=== PATIENT | female | born 1975 | race Caucasian/White ===

== ENCOUNTER 2016-12-26 18:21 | Emergency (ER) | payer OTHER, SELFPAY ==
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
[2016-12-26] MEDS ORDERED: Zofran 4 MG/2 ML VIAL IV ONE (18:44)
[2016-12-26] MEDS ORDERED: Sodium Chloride 0.9% 1000 ML 1,000 ML IV STA (18:44)
[2016-12-26] MEDS ORDERED: Zofran 4 MG/2 ML VIAL ONE (18:48)
[2016-12-26] MEDS ORDERED: Sodium Chloride 0.9% 1000 ML 1,000 ML ONE (18:48)
[2016-12-26 18:50] LABS: BASOPHIL % 0.3 % (0.0-0.4); Eosinophil % 2.5 % (0.00-5.0); Lymphocytes % 32.1 % (24.0-44.0); Mean Cell Volume 81.1 fl (78-100); Mean Corpuscular Hemoglobin 27.1 pg (26-32); Mean Platelet Volume 9.2 fl (6-9.5); Monocytes % 6.1 % (0.0-12.0); Platelet Count 263 K/mm3 (150-450); Red Blood Count 5.02 M/mm3 (4.1-5.4); Red Cell Distribution Width 15.8 % (11.5-14.0); White Blood Count 8.7 K/mm3 (4.0-10.5)
[2016-12-26 19:08] LABS: ALBUMIN 3.8 g/dL (3.4-5.0); ANION GAP 17.6 MEQ/L (5-15); BILIRUBIN,TOTAL 0.7 mg/dL (0.2-1.0); Carbon Dioxide 21.6 mEq/L (21-32); Potassium 3.6 mEq/L (3.5-5.1); Total Protein 7.9 gm/dL (6.4-8.2)
[2016-12-26 19:13] VITALS: PULSE 80
[2016-12-26] MEDS ORDERED: SUBLIMAZE 100 MCG/2 ML IV ONE (19:18)
[2016-12-26] MEDS ORDERED: Vistaril 50 MG/ML IM ONE ×2 (19:19→19:21)
[2016-12-26] MEDS ORDERED: SUBLIMAZE 100 MCG/2 ML ONE (19:22)
[2016-12-26 19:38] LABS: Collection Type CLEAN CATCH; Ph 5.5 (5-6)
[2016-12-26 19:39] LABS: ADD URINE CULTURE? NO (NO); COMPLETE URINE MICROSCOPIC? NO
[2016-12-26 19:48] VITALS: O2SAT 96
[2016-12-26] MEDS ORDERED: ZOFRAN ODT 4 MG ONE (20:41)
[2016-12-26] MEDS ORDERED: ZOFRAN ODT 4 MG PO ONE (20:46)
[2016-12-26 21:36] VITALS: BP 116/78
--- NOTE | 2016-12-27 09:02 | XRAY ---
Indication: Lower abdominal pain, nausea, vomiting, and dysuria. Multiple contiguous axial images obtained through the abdomen and pelvis without contrast as ordered. Comparison: CT renal stone study March 27, 2013. Lung bases are clear. Heart is not enlarged. Noncontrasted stomach and bowel loops appear nonobstructed. Scattered dense material in the small bowel loops presumed ingested medication. Normal appendix. No free fluid/air. Again previous hysterectomy. Remaining liver, gallbladder, pancreas, spleen, adrenal glands, kidneys, ureters, and bladder appear unremarkable for noncontrast exam. Minimal aortoiliac calcifications without AAA. Osseous structures intact again with flowing osteophytes of the visualized thoracic spine. No new finding for old L1 superior endplate fracture with approximately 50% height loss. Impression: 1. New finding for remote L1 endplate fracture. 2. No new/acute intra-abdominal/pelvic abnormalities on this noncontrast exam. CT DI 23.22
== END 2016-12-26 21:00 | disposition home or self-care (01) ==
LOC: ED 18:21
DX: R10.31 Right lower quadrant pain (principal); R10.11 Right upper quadrant pain; R11.10 Vomiting, unspecified; R19.7 Diarrhea, unspecified
CPT/HCPCS: 36000; 36415; 74176; 80053; 81002; 83690; 85025; 96360; 96372; 96374; 96375; 99284; J2405; J3010; J3410; Q0162

== ENCOUNTER 2017-05-22 16:34 | Inpatient (IN) | payer OTHER, SELFPAY ==
[2017-05-22] MEDS ORDERED: TYLENOL 325 MG PO ONE (17:04)
--- NOTE | 2017-05-22 17:04 | ERPHSYRPT ---
- History of Present Illness Time Seen by Provider: 05/22/17 16:58 Historian: patient Exam Limitations: no limitations Patient Subjective Stated Complaint: PT STATES 20 MIN [employer] SHE BEGAN HAVING RIGHT SIDED CHEST PAIN THAT RADAITES DOWN RIGHT ARM. STATES SHE HAS HAD A NON PRODUCTIVE COUGH. Triage Nursing Assessment: PT PINK, WARM, DRY. WHEEZES NOTED IN RIGHT LOWER LOBE. PT AFEBRILE. Physician History: The patient is a 41-year-old female with family complaining that 30 minutes ago she had a sharp stabbing pain in the mid to right side of her chest radiation down her right arm lasting about 2 seconds. After 15 seconds, the chest pain would return for 2 seconds and then resolved. She became nauseated. She is slightly short of breath, although she has been short of breath for several days. She has had similar episodes of right-sided chest pain for the past 2 months, but they have lasted only one or 2 episodes. She's not had these looked into. She also developed a sharp headache today. Her past medical history is significant for COPD, asthma, and hypertension. Timing/Duration: today, hour(s) (1/2) Activities at Onset: rest Quality: sharpness, stabbing Location: central (right side) Chest Pain Radiation: arm (right) Severity of Pain-Max: moderate Severity of Pain-Current: none Modifying Factors: Improves With: nothing Associated Symptoms: nausea, shortness of breath Prior Chest Pain/Cardiac Workup: non-cardiac Nitro Today/Relief: no nitro taken today Aspirin Treatment Today: no aspirin today Allergies/Adverse Reactions: clarithromycin [From Biaxin] Allergy (Mild, Verified 05/22/17 16:44) Nausea AND DIARRHEA ketorolac tromethamine [From Toradol] Allergy (Mild, Verified 05/22/17 16:44) VOMITED tramadol Allergy (Mild, Verified 05/22/17 16:44) NAUSEA prednisone Adverse Reaction (Severe, Verified 05/22/17 16:44) Rash ITCHING midazolam HCl [From Versed] Adverse Reaction (Intermediate, Verified 05/22/17 16 :44) Nausea VOMITING Home Medications: Estradiol 2 mg PO HS 10/28/14 [History] Lisinopril 40 mg PO HS 10/28/14 [History] Pantoprazole 20 mg [Protonix 20MG Tablet] 20 mg PO HS 08/07/15 [History] Albuterol 8 gm Mdi Hfa [Ventolin Hfa MDI] 8 gm IH .PRN 12/01/15 [History] Buspirone HCl 5 mg [Buspar 5 mg] 15 mg PO DAILY 06/06/16 [History] Fluticasone/Salmeterol 115/21* [Advair Hfa 115/21 Mcg Inhaler] 2 puff IH BIDRT 06/06/16 [History] Tizanidine HCl 8 mg PO HS 05/22/17 [History] Trazodone HCl 150 mg PO HS 05/22/17 [History] Hx Tetanus, Diphtheria Vaccination/Date Given: Yes (UP TO DATE) Hx Influenza Vaccination/Date Given: No Hx Pneumococcal Vaccination/Date Given: No Immunizations Up to Date: Yes - Review of Systems Constitutional: No Fever, No Chills Eyes: No Symptoms Ears, Nose, & Throat: No Symptoms Respiratory: Dyspnea, No Cough Cardiac: Chest Pain Abdominal/Gastrointestinal: No Abdominal Pain, No Nausea, No Vomiting, No Diarrhea Genitourinary Symptoms: No Dysuria Musculoskeletal: No Back Pain, No Neck Pain Skin: No Rash Neurological: No Dizziness, No Focal Weakness, No Sensory Changes Psychological: No Symptoms Endocrine: No Symptoms Hematologic/Lymphatic: No Symptoms Immunological/Allergic: No Symptoms All Other Systems: Reviewed and Negative - Past Medical History Pertinent Past Medical History: Yes Neurological History: Migraines ENT History: No Pertinent History Cardiac History: Hypertension Respiratory History: Asthma, COPD, Emphysema Endocrine Medical History: No Pertinent History Musculoskeletal History: Osteoarthritis GI Medical History: Colitis, Hemorrhoids History: Other Psycho-Social History: Anxiety, Depression, Panic Disorder Female Reproductive Disorders: Abnormal Uterine Bleeding Other Medical History: wears O2 at night, DJD of the L-spine. Fracture of back at T12 and L 2. Pt see pain doctor, Dr. Swartz. SAD, RTC repair, Bicep tenodesis in 3 separate surgeries of R shoulder - Past Surgical History Past Surgical History: Yes Neuro Surgical History: No Pertinent History Cardiac: No Pertinent History Respiratory: No Pertinent History Gastrointestinal: No Pertinent History Genitourinary: No Pertinent History Musculoskeletal: Orthopedic Surgery Female Surgical History: Section, Hysterectomy Other Surgical History: rt shoulder TIMES 2, AND CARPLETUNNEL BRITTANY - Social History Smoking Status: Current every day smoker How long have you smoked: 24 Exposure to second hand smoke: Yes Drug Use: none Patient Lives Alone: No Significant Family History: no pertinent family hx - Female History Hx Last Menstrual Period: HYSTER Hx Now: No - Nursing Vital Signs Nursing Vital Signs: Initial Vital Signs Temperature 99.0 F 05/22/17 16:36 Pulse Rate 95 H 05/22/17 16:36 Respiratory Rate 20 05/22/17 16:36 Blood Pressure 172/99 05/22/17 16:36 O2 Sat by Pulse Oximetry 99 05/22/17 16:36 Pain Scale Pain Intensity 5 - Physical Exam General Appearance: no apparent distress, alert Eye Exam: PERRL/EOMI, eyes nml inspection Ears, Nose, Throat Exam: normal ENT inspection, moist mucous membranes Neck Exam: normal inspection, non-tender, supple, full range of motion Respiratory Exam: diminished breath sounds, wheezing, No chest tenderness Cardiovascular Exam: regular rate/rhythm, normal heart sounds Gastrointestinal/Abdomen Exam: soft, No tenderness, No mass Pelvic Exam: not done Rectal Exam: not done Back Exam: normal inspection, No CVA tenderness, No vertebral tenderness Extremity Exam: normal inspection, normal range of motion Neurologic Exam: alert, oriented x 3, cooperative, normal mood/affect, sensation nml, No motor deficits Skin Exam: normal color, warm, dry SpO2 Interpretation: normal SpO2: 99 Oxygen Delivery: Room Air - Course EKG Interpreted by Me: RATE, Sinus Rhythm, NORMAL AXIS, NORMAL INTERVALS, NORMAL QRS, NORMAL ST-T - Radiology Exams Chest X-ray Interpretation: Interpreted by me, Negative Ordered Tests: Active Orders 24 hr Category Date Time Status Fur Tailor STAT Care 05/22/17 18:14 Active EKG-ER Only STAT Care 05/22/17 16:48 Active IV Insertion STAT Care 05/22/17 16:49 Active CHEST 2 VIEWS (PA AND LAT) Stat Exams 05/22/17 17:05 Taken CBC W DIFF Stat Lab 05/22/17 17:00 Completed CMP Stat Lab 05/22/17 17:00 Completed TROPONIN Q3H Lab 05/22/17 17:39 Completed TROPONIN Q3H Lab 05/22/17 20:15 Ordered TROPONIN Q3H Lab 05/22/17 23:15 Ordered TROPONIN Q3H Lab 05/23/17 02:15 Ordered TROPONIN Q3H Lab 05/23/17 05:15 Ordered Respiratory Nebulizer STAT RT 05/22/17 17:06 Completed Medication Summary Discontinued Medications Generic Name Dose Route Start Last Admin Trade Name Yolis STRATTON Reason Stop Dose Admin Acetaminophen 975 mg 05/22/17 17:04 05/22/17 17:26 Tylenol 325 Mg PO 05/22/17 17:05 975 mg STAT ONE Administration Acetaminophen Confirm 05/22/17 17:15 Tylenol 325 Mg Administered 05/22/17 17:16 Dose 975 mg .ROUTE .STK-MED ONE Albuterol/Ipratropium 3 ml 05/22/17 17:06 05/22/17 17:33 Duoneb 0.5-3 Mg/3 Ml Neb IH 05/22/17 17:07 3 ml STAT ONE Administration Albuterol/Ipratropium Confirm 05/22/17 17:32 Duoneb 0.5-3 Mg/3 Ml Neb Administered 05/22/17 17:33 Dose 3 ml IH .STK-MED ONE Ibuprofen 600 mg 05/22/17 17:06 05/22/17 17:25 Motrin 600 Mg PO 05/22/17 17:07 600 mg STAT ONE Administration Ibuprofen Confirm 05/22/17 17:14 Motrin 600 Mg Administered 05/22/17 17:15 Dose 600 mg .ROUTE .STK-MED ONE Methylprednisolone Sodium Succinate 125 mg 05/22/17 17:06 05/22/17 17:24 Solu-Medrol 125 Mg IV 05/22/17 17:07 125 mg STAT ONE Administration Methylprednisolone Sodium Succinate Confirm 05/22/17 17:15 Solu-Medrol 125 Mg Administered 05/22/17 17:16 Dose 125 mg .ROUTE .STK-MED ONE Ondansetron HCl 4 mg 05/22/17 17:10 05/22/17 17:24 Zofran 4 Mg/2 Ml Vial IV 05/22/17 17:11 4 mg STAT ONE Administration Ondansetron HCl Confirm 05/22/17 17:14 Zofran 4 Mg/2 Ml Vial Administered 05/22/17 17:15 Dose 4 mg .ROUTE .STK-MED ONE Lab/Rad Data: Laboratory Result Diagrams 05/22/17 17:00 05/22/17 17:00 Laboratory Results 05/22/17 05/22/17 05/22/17 Range/Units 17:39 17:00 17:00 WBC 8.0 (4.0-10.5) K/mm3 RBC 4.91 (4.1-5.4) M/mm3 Hgb 13.2 (12.0-16.0) gm/dl Hct 40.6 (35-47) % MCV 82.7 (78-100) fl MCH 26.9 (26-32) pg MCHC 32.5 (32-36) g/dl RDW 15.1 H (11.5-14.0) % Plt Count 276 (150-450) K/mm3 MPV 9.1 (6-9.5) fl Gran % 58.2 (36.0-66.0) % Lymphocytes % 32.5 (24.0-44.0) % Monocytes % 6.0 (0.0-12.0) % Eosinophils % 3.0 (0.00-5.0) % Basophils % 0.3 (0.0-0.4) % Basophils # 0.02 (0-0.4) Sodium 140 (136-145) mEq/L Potassium 3.8 (3.5-5.1) mEq/L Chloride 103 (98-107) mEq/L Carbon Dioxide 25.5 (21-32) mEq/L Anion Gap 15.4 H (5-15) MEQ/L BUN 13 (9-20) mg/dL Creatinine 1.01 (0.55-1.30) mg/dl Estimated GFR > 60 ML/MIN Glucose 91 (70-110) MG/DL Calcium 9.4 (8.5-10.1) mg/dL Total Bilirubin 0.30 (0.2-1.0) mg/dL AST 13 L (15-37) U/L ALT 17 (12-78) U/L Alkaline Phosphatase 69 (46-116) U/L Troponin I < 0.017 (0.000-0.056) ng/ml Serum Total Protein 7.7 (6.4-8.2) gm/dL Albumin 3.9 (3.4-5.0) g/dL - Progress Progress: improved Progress Note: 05/22/17 18:48 After tylenol and ibuprofen and duoneb, pt is feeling better but states chest pain is now chest pressure at a 5 of 10. Blood Culture(s) Obtained: No Antibiotics given: No Discussed with : Eduard Will see patient in: hospital (observation) Counseled pt/family regarding: lab results, diagnosis, rad results - Departure Time of Disposition: 19:00 Departure Disposition: Home Clinical Impression: Chest pain Condition: Stable Critical Care Time: No Referrals: TEREZA VILLATORO [Primary Care Provider] -
[2017-05-22] MEDS ORDERED: DUONEB 0.5-3 MG/3 ml Neb IH ONE ×2 (17:06→17:32)
[2017-05-22] MEDS ORDERED: MOTRIN 600 MG PO ONE (17:06)
[2017-05-22] MEDS ORDERED: solu-MEDROL 125 MG IV ONE (17:06)
[2017-05-22] MEDS ORDERED: Zofran 4 MG/2 ML VIAL IV ONE (17:10)
[2017-05-22 17:14] LABS: BASOPHIL % 0.3 % (0.0-0.4); Granulocytes % 58.2 % (36.0-66.0); Lymphocytes % 32.5 % (24.0-44.0); Mean Cell Volume 82.7 fl (78-100); Mean Corpuscular Hemoglobin 26.9 pg (26-32); Mean Platelet Volume 9.1 fl (6-9.5); Platelet Count 276 K/mm3 (150-450); Red Blood Count 4.91 M/mm3 (4.1-5.4); Red Cell Distribution Width 15.1 % (11.5-14.0)
[2017-05-22] MEDS ORDERED: Zofran 4 MG/2 ML VIAL ONE (17:14)
[2017-05-22] MEDS ORDERED: MOTRIN 600 MG ONE (17:14)
[2017-05-22] MEDS ORDERED: solu-MEDROL 125 MG ONE (17:15)
[2017-05-22] MEDS ORDERED: TYLENOL 325 MG ONE (17:15)
[2017-05-22 17:44] LABS: ALBUMIN 3.9 g/dL (3.4-5.0); ALKALINE PHOSPHATASE 69 U/L (46-116); ANION GAP 15.4 MEQ/L (5-15); BLOOD UREA NITROGEN 13 mg/dL (9-20); CHLORIDE 103 mEq/L (98-107); Carbon Dioxide 25.5 mEq/L (21-32); Glucose 91 MG/DL (70-110); Potassium 3.8 mEq/L (3.5-5.1); SGOT/AST 13 U/L (15-37); SGPT/ALT 17 U/L (12-78); SODIUM 140 mEq/L (136-145); Total Protein 7.7 gm/dL (6.4-8.2)
[2017-05-22] MEDS ORDERED: BABY ASPIRIN 81 MG CHEW PO ONE (19:03)
[2017-05-22] MEDS ORDERED: Zofran 4 MG/2 ML VIAL IV PRN (19:58)
[2017-05-22] MEDS ORDERED: Senokot-S Tablet PO PRN (19:58)
[2017-05-22] MEDS ORDERED: MILK OF MAGNESIA 30 ML PO PRN (19:58)
[2017-05-22] MEDS ORDERED: MAALOX ES 30 ML UNIT DOSE PO PRN (19:58)
[2017-05-22] MEDS: Advair Hfa 230/21 Mcg COMMON CANISTER IH SCH (20:25)
[2017-05-22] MEDS: ESTRACE 1 MG PO SCH (22:25)
[2017-05-22] MEDS: Zestril 20 MG PO SCH (22:25)
[2017-05-22] MEDS: TYLENOL 325 MG PO PRN (22:25)
[2017-05-22] MEDS: Protonix 20MG Tablet PO SCH (22:26)
[2017-05-22] MEDS: Desyrel 150 MG PO SCH (22:26)
[2017-05-22] MEDS: Zanaflex 4 MG PO SCH (22:26)
[2017-05-22] MEDS: PROVENTIL COMMON CANISTER IH SCH (22:45)
[2017-05-23] MEDS: Nicoderm CQ 21 MG TOP SCH (03:05)
[2017-05-23] MEDS: TYLENOL 325 MG PO PRN ×2 (03:11→14:15)
[2017-05-23] MEDS: PROVENTIL COMMON CANISTER IH SCH ×2 (03:12→07:23)
[2017-05-23] MEDS: PROVENTIL 2.5 MG/3 ML NEB IH PRN (07:18)
[2017-05-23] MEDS: Advair Hfa 230/21 Mcg COMMON CANISTER IH SCH ×2 (07:18→19:04)
--- NOTE | 2017-05-23 08:38 | XRAY ---
Indication: Right-sided chest pain. Comparison: June 30, 2016. PA/lateral chest remains clear. Heart is not enlarged. Vascularity normal. Bony thorax intact again with mild degenerative changes, distal right clavicle resection, and remote L1 compression deformity. Impression: Stable nonacute chest with chronic features.
--- NOTE | 2017-05-23 08:43 | PCM.HP ---
History of Present Illness - Chief Complaint Chief Complaint: Shortness of Breath History of Present Illness: is a 41 year old female with COPD and anxiety who woke up yesterday morning with R sided 8/10 chest pain lasting 10-15 seconds. This pain recurred several times and she came to the ER. She had just returned from [place] taking her daughter to surgery for CTS. She c/o upper respiratory symptoms for the past 3 weeks; she was treated with antibiotics po from [facility] with some improvement, but over the past several days is having more dry cough. No fever. In the ER she was given solu-medrol which helped her breathing but made her nauseated. Troponins are negative x 4. She does not tolerate prednisone. Smokes up to 1 PPD. - Review of Systems Respiratory: Cough, Short Of Breath, Wheezing Cardiac: Chest Pain Abdominal/Gastrointestinal: Nausea Neurological: Dizziness (in ER) Psychological: Anxiety, No Suicidal Ideations All Other Systems: Reviewed and Negative Medications & Allergies Home Medications: Home Medication List Estradiol 2 mg PO HS 10/28/14 [History Confirmed 05/22/17] Lisinopril 40 mg PO HS 10/28/14 [History Confirmed 05/22/17] Pantoprazole 20 mg [Protonix 20MG Tablet] 20 mg PO HS 08/07/15 [History Confirmed 05/22/17] Albuterol 8 gm Mdi Hfa [Ventolin Hfa MDI] 8 gm IH .PRN 12/01/15 [History Confirmed 05/22/17] Buspirone HCl 5 mg [Buspar 5 mg] 15 mg PO DAILY 06/06/16 [History Confirmed 05/22/17] Fluticasone/Salmeterol 115/21* [Advair Hfa 115/21 Mcg Inhaler] 2 puff IH BIDRT 06/06/16 [History Confirmed 05/22/17] Ondansetron [Zofran Odt] 4 mg PO Q6HPRN PRN #10 tab.rapdis 12/26/16 [Rx Confirmed 05/22/17] Tizanidine HCl 8 mg PO HS 05/22/17 [History Confirmed 05/22/17] Trazodone HCl 150 mg PO HS 05/22/17 [History Confirmed 05/22/17] Allergies/Adverse Reactions: Allergies Allergy/AdvReac Type Severity Reaction Status Date / Time clarithromycin [From Biaxin] Allergy Mild Nausea Verified 05/22/17 16:44 ketorolac tromethamine Allergy Mild Verified 05/22/17 16:44 [From Toradol] tramadol Allergy Mild Verified 05/22/17 16:44 prednisone AdvReac Severe Rash Verified 05/22/17 16:44 midazolam HCl [From Versed] AdvReac Intermediate Nausea Verified 05/22/17 16:44 - Past Medical History Past Medical History: Yes Neurological History: Migraines ENT History: No Pertinent History Cardiac History: Hypertension Respiratory History: Asthma, COPD, Emphysema Endocrine Medical History: No Pertinent History Musculoskelatal History: Osteoarthritis GI Medical History: Colitis, Hemorrhoids History: Other Pyscho-Social History: Anxiety, Depression, Panic Disorder Reproductive Disorders: Abnormal Uterine Bleeding Comment: wears O2 at night, DJD of the L-spine. Fracture of back at T12 and L 2. Pt see pain doctor, Dr. Swartz. SAD, RTC repair, Bicep tenodesis in 3 separate surgeries of R shoulder - Female History Hx Last Menstrual Period: HYSTER Are you now?: No - Past Surgical History Past Surgical History: Yes Neuro Surgical History: No Pertinent History Cardiac History: No Pertinent History Respiratory Surgery: No Pertinent History GI Surgical History: No Pertinent History Genitourinary Surgical Hx: No Pertinent History Musculskeletal Surgical Hx: Orthopedic Surgery Female Surgical History: Section, Hysterectomy Other Surgical History: rt shoulder TIMES 2, AND CARPLETUNNEL BRITTANY - Social History Smoking Status: Current every day smoker How long have you smoked: 24 Exposure to second hand smoke: Yes Alcohol: None Drug Use: none Significant Family History: no pertinent family hx - Physical Exam Vital Signs: Vital Signs - 24 hr Temp Pulse Pulse Resp BP Pulse Ox 05/23/17 08:00 97.9 F 80 18 114/57 96 05/23/17 07:23 87 18 96 05/23/17 04:00 97.6 F 82 16 97/53 96 05/23/17 03:12 72 16 96 05/23/17 00:00 95 05/22/17 23:41 98.6 F 86 18 116/56 97 05/22/17 22:45 68 18 95 05/22/17 22:32 97.9 F 71 19 143/77 96 05/22/17 20:25 68 19 95 05/22/17 19:58 88 16 126/78 99 05/22/17 19:03 99 05/22/17 18:13 78 18 127/81 05/22/17 17:47 80 18 128/64 100 05/22/17 17:06 88 18 95 05/22/17 16:47 85 05/22/17 16:36 99.0 F 95 H 20 172/99 99 Oxygen-Last 24 hours O2 Percentage 4 Liters = 36% O2 Percentage 6 Liters = 44% General Appearance: no apparent distress, alert Neurologic Exam: oriented x 3, cooperative Eye Exam: eyes nml inspection Ears, Nose, Throat Exam: moist mucous membranes Neck Exam: normal inspection, non-tender, No lymphadenopathy Respiratory Exam: diminished breath sounds (good air exchange), prolonged expirations, wheezing (exp throughout), No crackles/rales, No rhonchi Cardiovascular Exam: regular rate/rhythm, normal heart sounds, No murmur Gastrointestinal/Abdomen Exam: soft, normal bowel sounds, No tenderness, No distention Back Exam: normal inspection, No rash Extremity Exam: normal inspection, No pedal edema, No swelling Skin Exam: normal color, warm, dry Results - Labs Lab/Micro Results: Lab Results-Last 24 Hours 05/22/17 05/22/17 05/23/17 Range/Units 20:20 23:13 02:24 Troponin I < 0.017 < 0.017 < 0.017 (0.000-0.056) ng/ml Triglycerides (30-200) mg/dL Cholesterol (100-200) mg/dL LDL Cholesterol (5-99) mg/dL HDL Cholesterol (35-60) mg/dL Heart Disease Risk Ratio 05/23/17 05/23/17 Range/Units 05:00 05:15 Troponin I < 0.017 (0.000-0.056) ng/ml Triglycerides 264 H (30-200) mg/dL Cholesterol 256 H (100-200) mg/dL LDL Cholesterol 155 H (5-99) mg/dL HDL Cholesterol 55 (35-60) mg/dL Heart Disease Risk Ratio 4.7 - Other Procedures and Tests Respiratory Therapy 05/22/17 19:00 Respiratory MDI BID 05/22/17 21:56 Oxygen NASAL CANNULA 4 lpm 05/22/17 21:57 Respiratory Nebulizer PRN 05/22/17 23:00 Respiratory MDI Q4H 05/24/17 05:00 EKG DAILY 05/25/17 05:00 EKG DAILY 05/26/17 05:00 EKG DAILY Assessment/Plan (1) Chest pain Current Visit: Yes Status: Acute Qualifiers: Chest pain type: unspecified Qualified Code(s): R07.9 - Chest pain, unspecified Assessment & Plan: with one more negative troponin, NM will be ruled out. Code(s): R07.9 - CHEST PAIN, UNSPECIFIED (2) Acute exacerbation of chronic obstructive airways disease Current Visit: No Status: Acute Assessment & Plan: Very wheezy, but doesn't tolerate steroids well. Albuterol nebs QID. Start IV rocephin and zithromax. Re-assess this afternoon, but she may need to stay a day or two. Code(s): J44.1 - CHRONIC OBSTRUCTIVE PULMONARY DISEASE W (ACUTE) EXACERBATION (3) Tobacco dependence Current Visit: No Status: Chronic Assessment & Plan: didn't tolerate chantix well; will start wellbutrin. Code(s): F17.200 - NICOTINE DEPENDENCE, UNSPECIFIED, UNCOMPLICATED (4) Hypertension Current Visit: No Status: Chronic Qualifiers: Hypertension type: essential hypertension Qualified Code(s): I10 - Essential (primary) hypertension Code(s): I10 - ESSENTIAL (PRIMARY) HYPERTENSION
[2017-05-23] MEDS ORDERED: ZOFRAN ODT 4 MG PO PRN (08:53)
[2017-05-23] MEDS: PROVENTIL 2.5 MG/3 ML NEB IH SCH ×3 (09:00→19:03)
[2017-05-23] MEDS: BUSPAR 5 MG PO SCH (10:23)
[2017-05-23] MEDS: Wellbutrin SR 150 MG PO SCH ×2 (10:23→21:26)
[2017-05-23] MEDS: Ecotrin 325 MG PO SCH (10:23)
[2017-05-23] MEDS: ROCEPHIN 1 Gm-D5w 50 ml Bag** 1 G/50 ML IVPB IV SCH (10:25)
[2017-05-23] MEDS: Zithromax 500 MG/ 250 ML NaCl Premix 500 MG/250 ML IVPB IV SCH (11:15)
[2017-05-23] MEDS: Compazine 5 MG PO PRN ×2 (11:30→21:27)
[2017-05-23] MEDS: Ativan 0.5 MG PO PRN (17:06)
[2017-05-23] MEDS: Protonix 20MG Tablet PO SCH (21:26)
[2017-05-23] MEDS: Zanaflex 4 MG PO SCH (21:26)
[2017-05-23] MEDS: Zestril 20 MG PO SCH (21:27)
[2017-05-23] MEDS: Desyrel 150 MG PO SCH (21:27)
[2017-05-23] MEDS: ESTRACE 1 MG PO SCH (21:28)
[2017-05-24] MEDS: PROVENTIL 2.5 MG/3 ML NEB IH SCH ×4 (00:35→17:20)
[2017-05-24] MEDS: Nicoderm CQ 21 MG TOP SCH (06:49)
[2017-05-24] MEDS: Advair Hfa 230/21 Mcg COMMON CANISTER IH SCH ×2 (06:53→17:20)
[2017-05-24] MEDS: Ativan 0.5 MG PO PRN ×3 (08:53→22:05)
[2017-05-24] MEDS: Wellbutrin SR 150 MG PO SCH ×2 (08:53→21:49)
[2017-05-24] MEDS: BUSPAR 5 MG PO SCH (08:53)
[2017-05-24] MEDS: Ecotrin 325 MG PO SCH (08:53)
[2017-05-24] MEDS: ROCEPHIN 1 Gm-D5w 50 ml Bag** 1 G/50 ML IVPB IV SCH (08:54)
[2017-05-24] MEDS: Zithromax 500 MG/ 250 ML NaCl Premix 500 MG/250 ML IVPB IV SCH (09:35)
[2017-05-24] MEDS: PROVENTIL 2.5 MG/3 ML NEB IH PRN (11:16)
[2017-05-24] MEDS: TYLENOL 325 MG PO PRN (13:52)
[2017-05-24] MEDS: solu-MEDROL 40 MG IV SCH ×2 (13:57→21:50)
--- NOTE | 2017-05-24 14:00 | PCM.NOTE ---
Date and Time: 05/24/17 1359 Subjective Assessment: Pt still c/o wheezing and sob, on O2 per NC. - Review of Systems Constitutional: No Fever Respiratory: Cough Objective Exam General Appearance: no apparent distress, alert Neurologic Exam: oriented x 3, cooperative Skin Exam: normal color, warm, dry Respiratory Exam: diminished breath sounds, wheezing (throughout, expiratory), No crackles/rales, No rhonchi Cardiovascular Exam: regular rate/rhythm, normal heart sounds, No murmur Extremity Exam: normal inspection, No pedal edema, No swelling Back Exam: normal inspection OBJECTIVE DATA Vital Signs: Vital Signs - 24 hr Temp Pulse Resp BP Pulse Ox 05/24/17 13:00 96 05/24/17 11:55 98.6 F 71 16 122/7 95 05/24/17 11:18 81 18 97 05/24/17 09:00 94 L 05/24/17 08:00 98.5 F 78 16 92/50 94 L 05/24/17 06:57 80 20 96 05/24/17 05:00 98 05/24/17 04:00 98.3 F 79 20 93/51 98 05/24/17 01:00 95 05/24/17 00:35 68 16 97 05/24/17 00:00 98.0 F 82 20 87/52 97 05/23/17 21:00 95 05/23/17 20:00 98.2 F 85 20 100/55 95 05/23/17 19:03 75 20 97 05/23/17 16:00 98.2 F 97 H 18 119/57 97 Oxygen-Last 24 hours O2 Percentage 4 Liters = 36% O2 Percentage 4 Liters = 36% O2 Percentage 4 Liters = 36% Pain Assessment - Last Documented Pain Intensity 3 Pain Scale Used 0-10 Pain Scale Intake and Output: Intake & Output 05/22/17 05/23/17 05/24/17 05/25/17 11:59 11:59 11:59 11:59 Intake Total 1200 1870 360 Output Total 850 Balance 350 1870 360 Weight 90.718 kg 93.043 kg Assessment/Plan (1) Acute exacerbation of chronic obstructive airways disease Current Visit: Yes Status: Acute Assessment & Plan: add small amt solumedrol with zofran (it makes her vomit). continue rocephin/ zithromax day #2. Code(s): J44.1 - CHRONIC OBSTRUCTIVE PULMONARY DISEASE W (ACUTE) EXACERBATION (2) Chest pain Current Visit: Yes Status: Resolved Qualifiers: Chest pain type: unspecified Qualified Code(s): R07.9 - Chest pain, unspecified Code(s): R07.9 - CHEST PAIN, UNSPECIFIED (3) Tobacco dependence Current Visit: No Status: Chronic Code(s): F17.200 - NICOTINE DEPENDENCE, UNSPECIFIED, UNCOMPLICATED (4) Hypertension Current Visit: No Status: Chronic Qualifiers: Hypertension type: essential hypertension Qualified Code(s): I10 - Essential (primary) hypertension Code(s): I10 - ESSENTIAL (PRIMARY) HYPERTENSION
[2017-05-24] MEDS: Zofran 4 MG/2 ML VIAL IV PRN ×2 (14:07→22:06)
[2017-05-24] MEDS: Desyrel 150 MG PO SCH (21:49)
[2017-05-24] MEDS: Zestril 20 MG PO SCH (21:49)
[2017-05-24] MEDS: Zanaflex 4 MG PO SCH (21:49)
[2017-05-24] MEDS: Protonix 20MG Tablet PO SCH (21:49)
[2017-05-24] MEDS: ESTRACE 1 MG PO SCH (21:50)
[2017-05-24] MEDS: Compazine 5 MG PO PRN (22:05)
[2017-05-25] MEDS: PROVENTIL 2.5 MG/3 ML NEB IH SCH ×4 (00:07→19:22)
[2017-05-25] MEDS: Nicoderm CQ 21 MG TOP SCH (05:26)
[2017-05-25] MEDS: solu-MEDROL 40 MG IV SCH (05:26)
[2017-05-25] MEDS: Zofran 4 MG/2 ML VIAL IV PRN (05:36)
[2017-05-25] MEDS: Advair Hfa 230/21 Mcg COMMON CANISTER IH SCH ×2 (05:50→19:22)
[2017-05-25] MEDS: Phenergan 25 MG INJ IV PRN ×2 (08:38→20:24)
[2017-05-25] MEDS: Ecotrin 325 MG PO SCH (09:03)
[2017-05-25] MEDS: BUSPAR 5 MG PO SCH (09:03)
[2017-05-25] MEDS: Wellbutrin SR 150 MG PO SCH ×2 (09:03→21:10)
[2017-05-25] MEDS: ROCEPHIN 1 Gm-D5w 50 ml Bag** 1 G/50 ML IVPB IV SCH (09:03)
[2017-05-25] MEDS: Zithromax 500 MG/ 250 ML NaCl Premix 500 MG/250 ML IVPB IV SCH (09:03)
[2017-05-25] MEDS: TYLENOL 325 MG PO PRN (09:50)
[2017-05-25] MEDS ORDERED: Medrol Dosepack ONE (12:30)
--- NOTE | 2017-05-25 12:51 | PCM.NOTE ---
Date and Time: 05/25/17 1251 Subjective Assessment: she was vomitting persistently this am large amount after trying to eat breakfast she still feels heaviness and tightness in her chest with persistent wheezing and sob on minimal exertion she does have supplies at home but does not feel safe with her persistent symptoms discharging today solumedrol usually makes her vomit (this was started yesterday) and prednisone she states gives her hives but medrol dose packs don't bother her as much. Objective Exam General Appearance: no apparent distress, alert Neurologic Exam: alert, oriented x 3, cooperative, normal mood/affect, nml cerebellar function, sensation nml, No motor deficits Skin Exam: normal color, warm, dry Eye Exam: PERRL, EOMI, eyes nml inspection Ears, Nose, Throat Exam: normal ENT inspection, pharynx normal, moist mucous membranes Neck Exam: normal inspection, non-tender, supple, full range of motion Respiratory Exam: prolonged expirations, wheezing, No respiratory distress Cardiovascular Exam: regular rate/rhythm, normal heart sounds Gastrointestinal/Abdomen Exam: soft, No tenderness, No mass Extremity Exam: normal inspection, normal range of motion Back Exam: normal inspection, normal range of motion, No CVA tenderness, No vertebral tenderness Pelvic Exam: deferred Rectal Exam: deferred OBJECTIVE DATA Vital Signs: Vital Signs - 24 hr Temp Pulse Resp BP Pulse Ox 05/25/17 07:38 97.7 F 94 H 18 114/60 95 05/25/17 05:52 77 18 93 L 05/25/17 04:00 97.5 F 77 20 111/61 93 L 05/25/17 00:10 70 18 96 05/25/17 00:00 98.1 F 80 20 100/55 95 05/24/17 21:00 95 05/24/17 20:00 97.8 F 91 H 18 136/62 94 L 05/24/17 17:22 85 18 97 05/24/17 17:00 97 05/24/17 15:16 98.3 F 86 16 124/69 99 05/24/17 13:00 96 Oxygen-Last 24 hours O2 Percentage 4 Liters = 36% O2 Percentage 4 Liters = 36% O2 Percentage 4 Liters = 36% O2 Percentage 4 Liters = 36% Pain Assessment - Last Documented Pain Intensity 4 Pain Scale Used 0-10 Pain Scale,FLACC Intake and Output: Intake & Output 05/23/17 05/24/17 05/25/17 05/26/17 11:59 11:59 11:59 11:59 Intake Total 1200 1870 3153 Output Total 850 1000 Balance 350 1870 2153 Weight 90.718 kg 93.043 kg 92.034 kg Assessment/Plan (1) Acute exacerbation of chronic obstructive airways disease Current Visit: Yes Status: Acute Assessment & Plan: will change the solumedrol to medrol dose pack as she says solumedrol always makes her vomit but medrol does not. Will continue antibiotic and nebs she is still having persistent severe symptoms and sob with minimal exertion she does not feel comfortable or improved enough for discharge at this time will change to inpatient for further therapy still on nicotine patch as well. Code(s): J44.1 - CHRONIC OBSTRUCTIVE PULMONARY DISEASE W (ACUTE) EXACERBATION (2) Hypertension Current Visit: Yes Status: Chronic Qualifiers: Hypertension type: essential hypertension Qualified Code(s): I10 - Essential (primary) hypertension Code(s): I10 - ESSENTIAL (PRIMARY) HYPERTENSION (3) Chronic respiratory failure Current Visit: Yes Status: Chronic Code(s): J96.10 - CHRONIC RESPIRATORY FAILURE, UNSP W HYPOXIA OR HYPERCAPNIA (4) Tobacco dependence Current Visit: Yes Status: Chronic Code(s): F17.200 - NICOTINE DEPENDENCE, UNSPECIFIED, UNCOMPLICATED
[2017-05-25] MEDS ORDERED: MEDROL 4 MG PO SCH (13:00)
[2017-05-25] MEDS: MEDROL 4 MG PO SCH ×4 (13:12→21:12)
[2017-05-25] MEDS: Ativan 0.5 MG PO PRN ×2 (13:15→21:22)
[2017-05-25] MEDS: Zanaflex 4 MG PO SCH (21:08)
[2017-05-25] MEDS: Protonix 20MG Tablet PO SCH (21:10)
[2017-05-25] MEDS: Desyrel 150 MG PO SCH (21:10)
[2017-05-25] MEDS: ESTRACE 1 MG PO SCH (21:12)
[2017-05-25] MEDS: Zestril 20 MG PO SCH (21:12)
[2017-05-26] MEDS: PROVENTIL 2.5 MG/3 ML NEB IH SCH ×4 (01:33→22:12)
[2017-05-26] MEDS: MEDROL 4 MG PO SCH ×5 (07:43→21:24)
[2017-05-26] MEDS: Advair Hfa 230/21 Mcg COMMON CANISTER IH SCH ×2 (08:57→22:12)
[2017-05-26] MEDS: Nicoderm CQ 21 MG TOP SCH (09:05)
[2017-05-26] MEDS: ROCEPHIN 1 Gm-D5w 50 ml Bag** 1 G/50 ML IVPB IV SCH (09:05)
[2017-05-26] MEDS: Ecotrin 325 MG PO SCH (09:06)
[2017-05-26] MEDS: Wellbutrin SR 150 MG PO SCH ×2 (09:06→21:25)
[2017-05-26] MEDS: BUSPAR 5 MG PO SCH (09:06)
[2017-05-26] MEDS ORDERED: PHARMACY DOSING REQUEST MC ONE (09:15)
[2017-05-26] MEDS: Zithromax 500 MG/ 250 ML NaCl Premix 500 MG/250 ML IVPB IV SCH (09:59)
[2017-05-26] MEDS ORDERED: Singulair 10 MG PO SCH (10:00)
[2017-05-26] MEDS ORDERED: PROTONIX 40 MG IV IV SCH (10:00)
[2017-05-26] MEDS ORDERED: SODIUM CHLORIDE 0.9% IV SCH (10:00)
[2017-05-26] MEDS ORDERED: AMINOPHYLLINE IV SCH (10:00)
[2017-05-26] MEDS: Ativan 0.5 MG PO PRN ×2 (10:13→21:25)
[2017-05-26] MEDS ORDERED: Aminophylline 500 MG/20 ML*** 500 MG in Sodium Chloride 0.9% 500 ML 480 ML IV SCH (11:00)
[2017-05-26] MEDS: Compazine 5 MG PO PRN ×2 (12:27→21:25)
[2017-05-26] MEDS: Phenergan 25 MG INJ IV PRN ×2 (13:32→21:44)
[2017-05-26] MEDS: TYLENOL 325 MG PO PRN (16:56)
[2017-05-26] MEDS ORDERED: Robitussin-Dm Syrup PO PRN (18:10)
[2017-05-26] MEDS: Zanaflex 4 MG PO SCH (21:24)
[2017-05-26] MEDS: Zestril 20 MG PO SCH (21:24)
[2017-05-26] MEDS: Desyrel 150 MG PO SCH (21:25)
[2017-05-26] MEDS: ESTRACE 1 MG PO SCH (21:25)
[2017-05-27] MEDS: PROVENTIL 2.5 MG/3 ML NEB IH SCH ×2 (04:10→06:50)
[2017-05-27] MEDS: Nicoderm CQ 21 MG TOP SCH (05:59)
[2017-05-27] MEDS: Advair Hfa 230/21 Mcg COMMON CANISTER IH SCH (06:49)
[2017-05-27 06:54] VITALS: PULSE 71; O2SAT 98
[2017-05-27 07:20] VITALS: BP 111/55
[2017-05-27] MEDS ORDERED: MEDROL 4 MG PO SCH (22:00)
--- NOTE | 2017-05-28 13:40 | DS ---
DISCHARGE DIAGNOSIS: EXACERBATION OF ASTHMA. HISTORY: The patient is a 41 year-old white female who had been admitted to the hospital for a productive barky cough. She had been very tight in the chest and had been wheezing. The patient was brought into the hospital for evaluation and management. HOSPITAL COURSE: The patient was given IV Solu-Medrol, IV antibiotics. She does have a sensitivity to prednisone. She was slowly weaned off the Solu-Medrol and placed on Medrol orally. However the patient continued to be wheezing on 05/25/2017. We started her on an aminophylline drip and by 05/27/2017 she was feeling much better and essentially wheeze free. The patient was requesting to go home at this time. The patient's theophylline level on 05/27/2017 was 10.7. She had chest x-ray during her hospitalization that was stable and nonacute with chronic features. The patient was requesting Wellbutrin and nicotine patches to help quit smoking. She will be discharged home on Uniphyl 300 mg daily, Medrol 4 mg tablets three times a day for three days and two times a day and then one time a day for three days. She will finish a Z-Braxton. She will be given an appointment to see Dr. Chapa in follow up within the week. She is to also continue her home nebulizer treatments on a PRN basis.
== END 2017-05-27 11:00 | disposition home or self-care (01) | DRG 202 ==
LOC: ED 16:34 → MED SURG 19:53 → OBSVTOIN 05-25 12:49
PROVIDERS: ADMIT Family Medicine; ATTEND Family Medicine
DX: J45.901 Unspecified asthma with (acute) exacerbation (principal); J44.1 Chronic obstructive pulmonary disease with (acute) exacerbation; J96.10 Chronic respiratory failure, unspecified whether with hypoxia or hypercapnia; F41.9 Anxiety disorder, unspecified; I10 Essential (primary) hypertension; M19.90 Unspecified osteoarthritis, unspecified site; F32.9 Major depressive disorder, single episode, unspecified; F17.200 Nicotine dependence, unspecified, uncomplicated
CPT/HCPCS: 36000; 36415; 71020; 80053; 80061; 80198; 83721; 84484; 85025; 93005; 93041; 93268; 94640; 94760; 96374; 96375; 99285; G0378; J0280; J0456; J0696; J2405; J2550; J2920; J2930; A9270-GY

== ENCOUNTER 2017-07-02 16:47 | Emergency (ER) | payer OTHER ==
[2017-07-02] MEDS ORDERED: NORCO 5/325 MG PO ONE (16:49)
--- NOTE | 2017-07-02 16:54 | ERPHSYRPT ---
- History of Present Illness Time Seen by Provider: 07/02/17 16:49 Source: patient, EMS Physician History: CC: fall Hx:42 y/o patient fell twice yesterday at home. She has pain in the right and left knees and feet. Some bruising in the feet. No hip or other leg pain. No neck or back injury or pain. No LOC. Does not take blood thinners. Pain is severe. Occurred: yesterday Loss of Consciousness: no loss of consciousness Severity of Pain-Max: moderate Severity of Pain-Current: moderate Allergies/Adverse Reactions: clarithromycin [From Biaxin] Allergy (Mild, Verified 07/02/17 16:54) Nausea AND DIARRHEA ketorolac tromethamine [From Toradol] Allergy (Mild, Verified 07/02/17 16:54) VOMITED tramadol Allergy (Mild, Verified 07/02/17 16:54) NAUSEA prednisone Adverse Reaction (Severe, Verified 07/02/17 16:54) Rash ITCHING midazolam HCl [From Versed] Adverse Reaction (Intermediate, Verified 07/02/17 16 :54) Nausea VOMITING Home Medications: Estradiol 2 mg PO HS 10/28/14 [History] Lisinopril 40 mg PO HS 10/28/14 [History] Pantoprazole 20 mg [Protonix 20MG Tablet] 20 mg PO HS 08/07/15 [History] Albuterol 8 gm Mdi Hfa [Ventolin Hfa MDI] 8 gm IH .PRN 12/01/15 [History] Fluticasone/Salmeterol 115/21* [Advair Hfa 115/21 Mcg Inhaler] 2 puff IH BIDRT 06/06/16 [History] Tizanidine HCl 8 mg PO HS 05/22/17 [History] Trazodone HCl 150 mg PO HS 05/22/17 [History] Hx Tetanus, Diphtheria Vaccination/Date Given: Yes (UP TO DATE) Hx Influenza Vaccination/Date Given: No Hx Pneumococcal Vaccination/Date Given: No - Review of Systems Constitutional: No Symptoms Respiratory: No Dyspnea Cardiac: No Chest Pain Abdominal/Gastrointestinal: No Abdominal Pain Musculoskeletal: Fall, Injury, Joint Pain, No Back Pain, No Neck Pain Skin: No Rash Neurological: No Headache All Other Systems: Reviewed and Negative - Past Medical History Pertinent Past Medical History: Yes Neurological History: Migraines ENT History: No Pertinent History Cardiac History: Hypertension Respiratory History: Asthma, COPD, Emphysema Endocrine Medical History: No Pertinent History Musculoskeletal History: Osteoarthritis GI Medical History: Colitis, Hemorrhoids History: Other Psycho-Social History: Anxiety, Depression, Panic Disorder Female Reproductive Disorders: Abnormal Uterine Bleeding Other Medical History: wears O2 at night, DJD of the L-spine. Fracture of back at T12 and L 2. Pt see pain doctor, Dr. Swartz. SAD, RTC repair, Bicep tenodesis in 3 separate surgeries of R shoulder - Past Surgical History Past Surgical History: Yes Neuro Surgical History: No Pertinent History Cardiac: No Pertinent History Respiratory: No Pertinent History Gastrointestinal: No Pertinent History Genitourinary: No Pertinent History Musculoskeletal: Orthopedic Surgery Female Surgical History: Section, Hysterectomy Other Surgical History: rt shoulder TIMES 2, AND CARPLETUNNEL BRITTANY - Social History Smoking Status: Current every day smoker How long have you smoked: 24 Exposure to second hand smoke: Yes Drug Use: none Patient Lives Alone: No Significant Family History: no pertinent family hx - Nursing Vital Signs Nursing Vital Signs: Initial Vital Signs Temperature 97.8 F 07/02/17 16:48 Pulse Rate 68 07/02/17 16:48 Respiratory Rate 22 07/02/17 16:48 O2 Sat by Pulse Oximetry 97 07/02/17 16:48 Pain Scale Pain Intensity 7 - Michie Coma Score Best Eye Response (Michie): (4) open spontaneously Best Verbal Response (Polo): (5) oriented Best Motor Response (Michie): (6) obeys commands Polo Total: 15 - Physical Exam General Appearance: alert Head Injury: no evidence of injury Eye Exam: PERRL/EOMI ENT Exam: airway nml Neck Exam: supple, No mid-line tenderness Respiratory/Chest Exam: normal breath sounds, No chest tenderness Cardiovascular Exam: normal heart sounds, regular rate/rhythm Gastrointestinal Exam: soft, No tenderness, No distention Back Exam: normal inspection Extremity Exam: tenderness (both knees and feet. Pulses intact. No hip, femur, lower leg or ankle tenderness.) Neurologic Exam: alert, oriented x 3, cooperative, sensation nml, No motor deficits Skin Exam: warm, dry, ecchymosis - Course Nursing assessment & vital signs reviewed: Yes Ordered Tests: Active Orders 24 hr Category Date Time Status Mayur Bandage Application -[facility] STAT Care 07/02/17 17:58 Active Cold Application STAT Care 07/02/17 16:49 Active Splint STAT Care 07/02/17 17:58 Active FOOT (MINIMUM 3 VIEWS) Stat Exams 07/02/17 16:49 Taken FOOT (MINIMUM 3 VIEWS) Stat Exams 07/02/17 16:50 Taken KNEE (1 OR 2 VIEW) Stat Exams 07/02/17 16:49 Taken KNEE (1 OR 2 VIEW) Stat Exams 07/02/17 16:50 Taken Medication Summary Discontinued Medications Generic Name Dose Route Start Last Admin Trade Name Yolis PRN Reason Stop Dose Admin Hydrocodone Bitart/Acetaminophen 1 tab 07/02/17 16:49 07/02/17 17:44 [place] 5/325 Mg PO 07/02/17 16:50 1 tab STAT ONE Administration Hydrocodone Bitart/Acetaminophen Confirm 07/02/17 17:39 [place] 5/325 Mg Administered 07/02/17 17:40 Dose 1 tab .ROUTE .STK-MED ONE Hydroxyzine HCl 50 mg 07/02/17 17:03 07/02/17 17:44 Atarax 25 Mg PO 07/02/17 17:04 50 mg STAT ONE Administration Hydroxyzine HCl Confirm 07/02/17 17:39 Atarax 25 Mg Administered 07/02/17 17:40 Dose 50 mg .ROUTE .STK-MED ONE - Progress Progress Note: 07/02/17 17:58 Preliminary xray right and left feet and knees no fx pending radiology review. The right talus does have an irregularity and this was explained to pt. Will splint and use walker. Follow up with Dr Chapa advised. Counseled pt/family regarding: diagnosis, need for follow-up, rad results - Departure Time of Disposition: 17:59 Departure Disposition: Home Clinical Impression: Contusion of foot including toes Qualifiers: Encounter type: initial encounter Laterality: right Qualified Code(s): S90.31XA - Contusion of right foot, initial encounter; S90.121A - Contusion of right lesser toe(s) without damage to nail, initial encounter; S90.121A - Contusion of right lesser toe(s) without damage to nail, initial encounter Contusion, knee Qualifiers: Encounter type: initial encounter Laterality: right Qualified Code(s): S80.01XA - Contusion of right knee, initial encounter Condition: Stable Critical Care Time: No Referrals: TEREZA CHAPA [Primary Care Provider] - Instructions: Contusion, Prevent Falls, Choose and Use a Walker Additional Instructions: SPRAINS/STRAINS/CONTUSIONS 1. Rest the affected area as much as possible for the next few days. 2. Apply ice to the affected area for 20-30 minutes at a time, several times a day. 3. If you receive an elastic wrap, wear it only while awake for comfort and support. Re-wrap the elastic wrap if it feels too tight or too loose. 4. If swelling is present, elevate the affected part above the level of the heart for at least 2 to 3 days. 5. Use splints, slings, or crutches as instructed. 6. Watch for severe swelling, coldness, numbness, and discoloration of the fingers and toes. See your family physician or return to the emergency department if any of these are noted. Right foot shoe and mayur wrap. Rx norco for pain- no driving or operating machinery. Follow up with Dr Chapa in 1-2 days. Prescriptions: Hydrocodone Bit/Acetaminophen [[place] 5-325 Tablet] 1 each PO Q6H PRN PRN #15 tablet MDD 4 PRN Reason: Pain
[2017-07-02] MEDS ORDERED: ATARAX 25 MG PO ONE (17:03)
[2017-07-02] MEDS ORDERED: NORCO 5/325 MG ONE (17:39)
[2017-07-02] MEDS ORDERED: ATARAX 25 MG ONE (17:39)
[2017-07-02 18:19] VITALS: BP 100/64; PULSE 67; O2SAT 99
--- NOTE | 2017-07-03 08:51 | XRAY ---
Indication: Pain. Unable to ambulate. Comparison: September 04, 2008. 3 nonweightbearing views of the left foot again demonstrates tiny cuboid accessory ossicles with new tiny posterior heel spur. No other bony, articular, or soft tissue abnormalities.
--- NOTE | 2017-07-03 08:53 | XRAY ---
Indication: Pain. Unable to ambulate. Comparison: None. AP/lateral left knee obtained. No bony, articular, or soft tissue abnormalities.
--- NOTE | 2017-07-03 08:53 | XRAY ---
Indication: Pain. Unable to ambulate. Comparison: None. 3 nonweightbearing views of the right foot demonstrates tiny cuboid accessory ossicles with small heel spurs. No other bony, articular, or soft tissue abnormalities.
--- NOTE | 2017-07-03 09:03 | XRAY ---
Indication: Pain. Unable to ambulate. Comparison: None. AP/lateral right knee obtained. No bony, articular, or soft tissue abnormalities.
== END 2017-07-02 18:53 | disposition home or self-care (01) ==
LOC: ED 16:47
DX: S90.31XA Contusion of right foot, initial encounter (principal); S90.121A Contusion of right lesser toe(s) without damage to nail, initial encounter; S80.01XA Contusion of right knee, initial encounter; W19.XXXA Unspecified fall, initial encounter
CPT/HCPCS: 73560; 73630; 99284; A9270-GY

== ENCOUNTER 2018-04-25 15:08 | Inpatient (IN) | payer MEDICARE ==
[2018-04-25] MEDS ORDERED: TYLENOL 325 MG PO PRN (15:31)
[2018-04-25] MEDS: DUONEB 0.5-3 MG/3 ml Neb IH SCH ×2 (15:51→19:18)
--- NOTE | 2018-04-25 16:07 | XRAY ---
Indication: COPD exacerbation. Comparison: May 22, 2017. PA/lateral chest again demonstrates normal heart and lungs. Bony thorax intact again with mild degenerative changes, distal right clavicle resection, and remote L1 compression deformity. Impression: Stable nonacute chest with chronic features.
[2018-04-25] MEDS ORDERED: Ventolin Hfa MDI IH PRN (16:09)
[2018-04-25] MEDS: solu-MEDROL 40 MG IV SCH (16:13)
[2018-04-25] MEDS: Lactated Ringers 1,000 ML IV SCH (16:14)
[2018-04-25] MEDS: Levofloxacin 500MG/100ML D5W 500 MG/100 ML BAG IV SCH (16:17)
[2018-04-25] MEDS: Phenergan 25 MG INJ IV PRN (16:20)
[2018-04-25] MEDS ORDERED: PROVENTIL COMMON CANISTER IH PRN (16:27)
[2018-04-25] MEDS ORDERED: Tussionex Pennkinetic Susp PO PRN (16:39)
[2018-04-25 16:44] LABS: Hematocrit 41.9 % (35-47); Hemoglobin 14.2 gm/dl (12.0-16.0); Mean Cell Volume 81.4 fl (78-100); Mean Corpuscular Hemoglobin 27.6 pg (26-32); Mean Corpuscular Hgb Concent. 33.9 g/dl (32-36); Platelet Count 281 K/mm3 (150-450); Red Blood Count 5.15 M/mm3 (4.1-5.4); Red Cell Distribution Width 15.4 % (11.5-14.0); White Blood Count 13.5 K/mm3 (4.0-10.5)
[2018-04-25 16:58] LABS: ALBUMIN 4.3 g/dL (3.5-5.0); ALKALINE PHOSPHATASE 85 U/L (38-126); ANION GAP 13.1 MEQ/L (5-15); BLOOD UREA NITROGEN 14 mg/dL (7-17); CHLORIDE 105 mmol/L (98-107); Calcium 9.5 mg/dL (8.4-10.2); Carbon Dioxide 25 mmol/L (22-30); Creatinine 1 0.83 mg/dL (0.52-1.04); Glucose 85 mg/dL (74-106); Potassium 3.6 mmol/L (3.5-5.1); SGOT/AST 12 U/L (14-36); SGPT/ALT 12 U/L (0-35); SODIUM 140 mmol/L (137-145); Total Protein 7.2 g/dL (6.3-8.2)
[2018-04-25] MEDS ORDERED: DUONEB 0.5-3 MG/3 ml Neb IH ONE (18:58)
[2018-04-25] MEDS ORDERED: SALMETEROL IH SCH (19:00)
[2018-04-25] MEDS ORDERED: FLUTICASONE IH SCH (19:00)
[2018-04-25] MEDS: Advair Hfa 115/21 Common canister IH SCH (19:18)
[2018-04-25] MEDS: Protonix 20MG Tablet PO SCH (21:35)
[2018-04-25] MEDS: Cyclobenzaprine 10 MG PO PRN (21:35)
[2018-04-25] MEDS: Desyrel 150 MG PO SCH (21:35)
[2018-04-25] MEDS: Zestril 20 MG PO SCH (21:35)
[2018-04-25] MEDS: ESTRACE 1 MG PO SCH (21:36)
[2018-04-25] MEDS ORDERED: Lexapro 10 MG ONE (21:43)
[2018-04-25] MEDS ORDERED: ESTRADIOL 2 MG PO SCH (22:00)
[2018-04-25] MEDS ORDERED: NON-FORMULARY ITEM (Lisinopril [Lisinopril] 40 MG) PO SCH (22:00)
[2018-04-25] MEDS: Lexapro 10 MG PO SCH (22:09)
[2018-04-25 22:31] LABS: Appearance SLIGHTLY CLOUDY (CLEAR); Bilirubin NEGATIVE (NEGATIVE); Blood NEGATIVE Ery/ul (0-5); Glucose NEGATIVE (NEGATIVE); Ketones NEGATIVE (NEGATIVE); Leukocyte Esterase NEGATIVE (NEGATIVE); Nitrite POSITIVE (NEGATIVE); Protein,Urine Dip NEGATIVE (Negative); Specific Gravity 1.017 (1.005-1.025); Urobilinogen 2 mg/dL (0-1)
[2018-04-26] MEDS ORDERED: NORCO 5/325 MG ONE (00:05)
[2018-04-26] MEDS: solu-MEDROL 40 MG IV SCH ×2 (00:05→13:45)
[2018-04-26] MEDS: Phenergan 25 MG INJ IV PRN ×3 (00:14→18:12)
[2018-04-26] MEDS: DUONEB 0.5-3 MG/3 ml Neb IH SCH ×6 (01:19→23:13)
[2018-04-26] MEDS: Lactated Ringers 1,000 ML IV SCH ×2 (06:29→19:13)
[2018-04-26] MEDS: Advair Hfa 115/21 Common canister IH SCH ×2 (07:19→19:37)
--- NOTE | 2018-04-26 08:13 | PCM.HP ---
History of Present Illness - Chief Complaint Chief Complaint: exac copd,failed outpatient History of Present Illness: is a 42 year old female pt of mine from [facility] with COPD who was admitted with COPD exacerbation yesterday. She had seen for runny nose about a week ago and given steroids and flonase. 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 Overnight she received tussionex, which helped initially, but she did cough the majority of the night. Decreased appetite. - Review of Systems Constitutional: Chills, Fatigue Respiratory: Cough, Short Of Breath Abdominal/Gastrointestinal: Nausea (with steroid administration; ok if phenergan given), Vomiting (x2), Diarrhea (none since admission) Musculoskeletal: Arthralgias Psychological: No Anxiety, No Depression, No Suicidal Ideations All Other Systems: Reviewed and Negative Medications & Allergies Home Medications: Home Medication List Estradiol 2 mg PO HS 10/28/14 [History Confirmed 04/25/18] Lisinopril 40 mg PO HS 10/28/14 [History Confirmed 04/25/18] Pantoprazole 20 mg [Protonix 20MG Tablet] 20 mg PO HS 08/07/15 [History Confirmed 04/25/18] Fluticasone/Salmeterol 115/21* [Advair Hfa 115/21 Mcg Inhaler] 2 puff IH BIDRT 06/06/16 [History Confirmed 04/25/18] Tizanidine HCl 4 mg PO BID PRN 05/22/17 [History Confirmed 04/25/18] Trazodone HCl 150 mg PO HS 05/22/17 [History Confirmed 04/25/18] Hydrocodone Bit/Acetaminophen [Vilonia 5-325 Tablet] 1 each PO Q6H PRN PRN #15 tablet MDD 4 07/02/17 [Rx Confirmed 04/25/18] Albuterol 8 gm Mdi Hfa [Ventolin Hfa MDI] 8 gm IH Q4HPRN PRN 04/25/18 [ History Confirmed 04/25/18] Escitalopram Oxalate 10 mg [Lexapro 10 MG] 20 mg PO HS 04/25/18 [History Confirmed 04/25/18] Allergies/Adverse Reactions: Allergies Allergy/AdvReac Type Severity Reaction Status Date / Time clarithromycin [From Biaxin] Allergy Mild Nausea Verified 07/02/17 16:54 ketorolac tromethamine Allergy Mild Verified 07/02/17 16:54 [From Toradol] tramadol Allergy Mild Verified 07/02/17 16:54 prednisone AdvReac Severe Rash Verified 07/02/17 16:54 midazolam HCl [From Versed] AdvReac Intermediate Nausea Verified 07/02/17 16:54 - Past Medical History Past Medical History: Yes Neurological History: Peripheral Neuropathy ENT History: No Pertinent History Cardiac History: Hypertension Respiratory History: Asthma, Bronchitis, COPD Endocrine Medical History: No Pertinent History Musculoskelatal History: Arthritis, Fractures GI Medical History: Colitis, Hemorrhoids History: Other Pyscho-Social History: Anxiety, Depression, Panic Disorder Reproductive Disorders: Abnormal Uterine Bleeding Comment: wears O2 at night, DJD of the L-spine. Fracture of back at T12 and L 2. Pt was to see pain doctor, Dr. Swartz. SAD, RTC repair, Bicep tenodesis in 3 separate surgeries of R shoulder - Female History Are you now?: No (u) - Past Surgical History Past Surgical History: Yes Neuro Surgical History: No Pertinent History Cardiac History: No Pertinent History Respiratory Surgery: No Pertinent History GI Surgical History: No Pertinent History Genitourinary Surgical Hx: No Pertinent History Musculskeletal Surgical Hx: Orthopedic Surgery Female Surgical History: Section, Hysterectomy Other Surgical History: rt shoulder TIMES 2, AND CARPLETUNNEL BRITTANY - Social History Smoking Status: Current every day smoker How long have you smoked: 24 Exposure to second hand smoke: Yes Alcohol: None Drug Use: none Significant Family History: no pertinent family hx - Physical Exam Vital Signs: Vital Signs - 24 hr Temp Pulse Resp BP Pulse Ox 04/26/18 07:27 118 H 18 93 L 04/26/18 07:02 97.5 F 77 20 109/54 93 L 04/26/18 04:00 18 04/26/18 03:45 98.2 F 68 19 98/50 94 L 04/26/18 01:15 81 22 96 04/26/18 00:00 20 04/25/18 23:43 98.3 F 72 20 102/59 93 L 04/25/18 20:00 20 04/25/18 19:26 98.7 F 86 19 120/60 96 04/25/18 19:19 68 18 95 04/25/18 16:08 102 H 22 94 L 04/25/18 15:46 102 H 22 94 L Oxygen-Last 24 hours O2 Percentage 2 Liters = 28% O2 Percentage 2 Liters = 28% O2 Percentage 2 Liters = 28% O2 Percentage 2 Liters = 28% General Appearance: no apparent distress, alert Neurologic Exam: oriented x 3, cooperative Eye Exam: eyes nml inspection Ears, Nose, Throat Exam: moist mucous membranes Respiratory Exam: diminished breath sounds (poor air exchange), prolonged expirations, wheezing (throughout), No crackles/rales, No rhonchi Cardiovascular Exam: regular rate/rhythm, normal heart sounds, No murmur Gastrointestinal/Abdomen Exam: soft, normal bowel sounds, No tenderness Back Exam: normal inspection, No rash Extremity Exam: normal inspection, No pedal edema, No swelling Skin Exam: normal color, warm, dry, No rash Results - Labs Lab/Micro Results: Accuchecks Date 04/25/18 Date 04/25/18 Time 21:57 Time 16:30 Accucheck Value: 194 Accucheck Value: 87 Lab Results-Last 24 Hours 04/25/18 04/25/18 04/25/18 Range/Units 16:37 16:37 16:37 WBC 13.5 H (4.0-10.5) K/mm3 RBC 5.15 (4.1-5.4) M/mm3 Hgb 14.2 (12.0-16.0) gm/dl Hct 41.9 (35-47) % MCV 81.4 (78-100) fl MCH 27.6 (26-32) pg MCHC 33.9 (32-36) g/dl RDW 15.4 H (11.5-14.0) % Plt Count 281 (150-450) K/mm3 MPV 9.0 (6-9.5) fl Sodium 140 (137-145) mmol/L Potassium 3.6 (3.5-5.1) mmol/L Chloride 105 (98-107) mmol/L Carbon Dioxide 25 (22-30) mmol/L Anion Gap 13.1 (5-15) MEQ/L BUN 14 (7-17) mg/dL Creatinine 0.83 (0.52-1.04) mg/dL Estimated GFR > 60.0 ML/MIN Glucose 85 (74-106) mg/dL Hemoglobin A1c 5.19 (4.5-6.0) % Calcium 9.5 (8.4-10.2) mg/dL Total Bilirubin 0.50 (0.2-1.3) mg/dL AST 12 L (14-36) U/L ALT 12 (0-35) U/L Alkaline Phosphatase 85 (38-126) U/L Serum Total Protein 7.2 (6.3-8.2) g/dL Albumin 4.3 (3.5-5.0) g/dL Urine Color (YELLOW) Urine Appearance (CLEAR) Urine pH (5-6) Ur Specific [place] (1.005-1.025) Urine Protein (Negative) Urine Ketones (NEGATIVE) Urine Blood (0-5) Casey/ul Urine Nitrite (NEGATIVE) Urine Bilirubin (NEGATIVE) Urine Urobilinogen (0-1) mg/dL Ur Leukocyte Esterase (NEGATIVE) Urine WBC (Auto) (0-5) /HPF Urine RBC (Auto) (0-2) /HPF U Epithel Cells (Auto) (FEW) /HPF Urine Bacteria (Auto) (NEGATIVE) /HPF Urine Culture Reflexed (NO) Urine Glucose (NEGATIVE) mg/dL 04/25/18 Range/Units 22:15 WBC (4.0-10.5) K/mm3 RBC (4.1-5.4) M/mm3 Hgb (12.0-16.0) gm/dl Hct (35-47) % MCV (78-100) fl MCH (26-32) pg MCHC (32-36) g/dl RDW (11.5-14.0) % Plt Count (150-450) K/mm3 MPV (6-9.5) fl Sodium (137-145) mmol/L Potassium (3.5-5.1) mmol/L Chloride (98-107) mmol/L Carbon Dioxide (22-30) mmol/L Anion Gap (5-15) MEQ/L BUN (7-17) mg/dL Creatinine (0.52-1.04) mg/dL Estimated GFR ML/MIN Glucose (74-106) mg/dL Hemoglobin A1c (4.5-6.0) % Calcium (8.4-10.2) mg/dL Total Bilirubin (0.2-1.3) mg/dL AST (14-36) U/L ALT (0-35) U/L Alkaline Phosphatase (38-126) U/L Serum Total Protein (6.3-8.2) g/dL Albumin (3.5-5.0) g/dL Urine Color YELLOW (YELLOW) Urine Appearance SLIGHTLY CLOUDY (CLEAR) Urine pH 6.0 (5-6) Ur Specific [place] 1.017 (1.005-1.025) Urine Protein NEGATIVE (Negative) Urine Ketones NEGATIVE (NEGATIVE) Urine Blood NEGATIVE (0-5) Casey/ul Urine Nitrite POSITIVE (NEGATIVE) Urine Bilirubin NEGATIVE (NEGATIVE) Urine Urobilinogen 2 (0-1) mg/dL Ur Leukocyte Esterase NEGATIVE (NEGATIVE) Urine WBC (Auto) 3-5 (0-5) /HPF Urine RBC (Auto) 0-2 (0-2) /HPF U Epithel Cells (Auto) RARE (FEW) /HPF Urine Bacteria (Auto) RARE (NEGATIVE) /HPF Urine Culture Reflexed NO (NO) Urine Glucose NEGATIVE (NEGATIVE) mg/dL Accuchecks Date 04/25/18 Date 04/25/18 Time 21:57 Time 16:30 Accucheck Value: 194 Accucheck Value: 87 - Radiology Impressions Radiology Exams & Impressions: Radiology Procedures Category Date Time Status CHEST 2 VIEWS (PA AND LAT) Routine Exams 04/25/18 15:30 Completed - Other Procedures and Tests Respiratory Therapy 04/25/18 15:28 Oxygen NASAL CANNULA 2 lpm 04/26/18 07:00 Respiratory Therapy Assessment DAILY Assessment/Plan (1) Acute exacerbation of chronic obstructive airways disease Current Visit: No Status: Acute Assessment & Plan: I have increased her steroid from 40mg TID to 125mg solumedrol IV q6h. Albuterol nebs q4h prn. Code(s): J44.1 - CHRONIC OBSTRUCTIVE PULMONARY DISEASE W (ACUTE) EXACERBATION (2) Chronic respiratory failure Current Visit: No Status: Chronic Qualifiers: Respiratory failure complication: hypoxia Qualified Code(s): J96.11 - Chronic respiratory failure with hypoxia Code(s): J96.10 - CHRONIC RESPIRATORY FAILURE, UNSP W HYPOXIA OR HYPERCAPNIA (3) Hypertension Current Visit: No Status: Chronic Qualifiers: Hypertension type: essential hypertension Qualified Code(s): I10 - Essential (primary) hypertension Assessment & Plan: well controlled here. Code(s): I10 - ESSENTIAL (PRIMARY) HYPERTENSION (4) Diabetes mellitus Current Visit: Yes Status: Acute Qualifiers: Diabetes mellitus type: type 2 Diabetes mellitus usp insulin use: without termite treater use Diabetes mellitus complication status: without complication Qualified Code(s): E11.9 - Type 2 diabetes mellitus without complications Assessment & Plan: Has dx of DM but not on meds Code(s): E11.9 - TYPE 2 DIABETES MELLITUS WITHOUT COMPLICATIONS
[2018-04-26] MEDS: solu-MEDROL 125 MG IV SCH ×2 (08:51→18:08)
[2018-04-26] MEDS ORDERED: FLUZONE QUAD (36mo-64yo) 2018-2019 SYRINGE IM ONE (10:00)
[2018-04-26] MEDS: Levofloxacin 500MG/100ML D5W 500 MG/100 ML BAG IV SCH (10:06)
[2018-04-26] MEDS: NORCO 5/325 MG PO PRN (15:49)
[2018-04-26] MEDS: Tessalon Perles 100 MG PO PRN (18:18)
[2018-04-26] MEDS: ESTRACE 1 MG PO SCH (21:12)
[2018-04-26] MEDS: Protonix 20MG Tablet PO SCH (21:13)
[2018-04-26] MEDS: Zestril 20 MG PO SCH (21:13)
[2018-04-26] MEDS: Desyrel 150 MG PO SCH (21:13)
[2018-04-26] MEDS: Lexapro 10 MG PO SCH (21:13)
[2018-04-27] MEDS: Cyclobenzaprine 10 MG PO PRN ×2 (00:20→22:17)
[2018-04-27] MEDS: Phenergan 25 MG INJ IV PRN ×4 (00:20→18:46)
[2018-04-27] MEDS: solu-MEDROL 125 MG IV SCH ×4 (00:20→18:46)
[2018-04-27] MEDS: DUONEB 0.5-3 MG/3 ml Neb IH SCH ×6 (03:16→23:34)
[2018-04-27] MEDS: Lactated Ringers 1,000 ML IV SCH (06:50)
[2018-04-27] MEDS: Tessalon Perles 100 MG PO PRN (06:51)
[2018-04-27] MEDS: Advair Hfa 115/21 Common canister IH SCH ×2 (07:29→19:38)
[2018-04-27] MEDS: Levofloxacin 500MG/100ML D5W 500 MG/100 ML BAG IV SCH (09:10)
--- NOTE | 2018-04-27 10:00 | PCM.NOTE ---
Date and Time: 04/27/18954 Subjective Assessment: states she doesn't feel much better still coughing and tired and short of breath. nonproductive cough. no vomiting tolerating drinking now. no swelling Objective Exam General Appearance: obese Neurologic Exam: alert, oriented x 3, cooperative Skin Exam: warm, dry Eye Exam: No scleral icterus Ears, Nose, Throat Exam: moist mucous membranes Neck Exam: non-tender, supple Respiratory Exam: diminished breath sounds, prolonged expirations, wheezing Cardiovascular Exam: regular rate/rhythm, normal heart sounds, No murmur Gastrointestinal/Abdomen Exam: normal bowel sounds, No tenderness, No distention , No mass Extremity Exam: normal inspection, No calf tenderness, No pedal edema OBJECTIVE DATA Vital Signs: Vital Signs - 24 hr Temp Pulse Resp BP Pulse Ox 04/27/18 08:00 18 04/27/18 07:35 62 20 93 L 04/27/18 07:18 98.1 F 70 18 115/62 92 L 04/27/18 04:00 97.8 F 72 20 105/55 90 L 04/27/18 03:17 72 20 90 L 04/27/18 00:00 97.4 F 71 19 117/61 93 L 04/26/18 23:13 71 19 93 L 04/26/18 19:37 74 20 92 L 04/26/18 19:00 98.3 F 78 20 117/55 94 L 04/26/18 16:05 97.7 F 82 20 119/53 93 L 04/26/18 15:01 88 18 95 04/26/18 12:16 98.1 F 90 20 134/63 94 L 04/26/18 12:00 22 04/26/18 11:16 93 H 22 91 L Oxygen-Last 24 hours O2 Percentage 4 Liters = 36% O2 Percentage 4 Liters = 36% O2 Percentage 2 Liters = 28% O2 Percentage 2 Liters = 28% Oxygen Flowrate (L/min)-RT 4 Pain Assessment - Last Documented Pain Intensity 6 Pain Scale Used FLACC Intake and Output: Intake & Output 04/24/18 04/25/18 04/26/18 04/27/18 11:59 11:59 11:59 11:59 Intake Total 965 3009 Output Total 300 650 Balance 661 6559 Weight 82.55 kg 82.55 kg Lab Results: Accuchecks Date 04/27/18 Date 04/26/18 Time 07:30 Time 11:30 Accucheck Value: 158 Accucheck Value: 181 Accucheck Value: 182 Accucheck Value: 130 Radiology Exams: Radiology Procedures Category Date Time Status CHEST 2 VIEWS (PA AND LAT) Routine Exams 04/25/18 15:30 Completed Assessment/Plan (1) Acute exacerbation of chronic obstructive airways disease Current Visit: Yes Status: Acute Onset Date: ~04/25/18 Assessment & Plan: still poor air movement and significant dyspnea with minimal exertion will wean steroids slightly and continue the levaquin as well continue scheduled nebs and the oxygen supplementation. Code(s): J44.1 - CHRONIC OBSTRUCTIVE PULMONARY DISEASE W (ACUTE) EXACERBATION (2) Diabetes mellitus Current Visit: Yes Status: Chronic Onset Date: ~04/25/18 Qualifiers: Diabetes mellitus type: type 2 Diabetes mellitus chcf insulin use: without petroleum terminal plant operator use Diabetes mellitus complication status: without complication Qualified Code(s): E11.9 - Type 2 diabetes mellitus without complications Assessment & Plan: diet controlled Code(s): E11.9 - TYPE 2 DIABETES MELLITUS WITHOUT COMPLICATIONS (3) Hypertension Current Visit: Yes Status: Chronic Qualifiers: Hypertension type: essential hypertension Qualified Code(s): I10 - Essential (primary) hypertension Code(s): I10 - ESSENTIAL (PRIMARY) HYPERTENSION (4) Tobacco dependence Current Visit: Yes Status: Chronic Code(s): F17.200 - NICOTINE DEPENDENCE, UNSPECIFIED, UNCOMPLICATED
[2018-04-27] MEDS: NORCO 5/325 MG PO PRN (18:50)
[2018-04-27] MEDS: Protonix 20MG Tablet PO SCH (22:16)
[2018-04-27] MEDS: ESTRACE 1 MG PO SCH (22:16)
[2018-04-27] MEDS: Lexapro 10 MG PO SCH (22:16)
[2018-04-27] MEDS: Zestril 20 MG PO SCH (22:16)
[2018-04-27] MEDS: Desyrel 150 MG PO SCH (22:16)
[2018-04-27] MEDS: NovoLOG Insulin SQ PRN (22:17)
[2018-04-28] MEDS: solu-MEDROL 125 MG IV SCH ×4 (00:37→21:34)
[2018-04-28] MEDS: Phenergan 25 MG INJ IV PRN ×4 (00:38→21:36)
[2018-04-28] MEDS: DUONEB 0.5-3 MG/3 ml Neb IH SCH ×6 (03:26→23:04)
[2018-04-28] MEDS: Tessalon Perles 100 MG PO PRN (04:15)
[2018-04-28] MEDS: Advair Hfa 115/21 Common canister IH SCH ×2 (07:02→19:17)
[2018-04-28] MEDS: Levofloxacin 500MG/100ML D5W 500 MG/100 ML BAG IV SCH (09:31)
--- NOTE | 2018-04-28 10:26 | PCM.NOTE ---
Date and Time: 04/28/18 1022 Subjective Assessment: still very fatigued and easily short of breath with minimal activity and persistent coughing. She has continued nonproductive cough. She is eating without nausea or vomiting but her appetite is diminished. Objective Exam General Appearance: obese Neurologic Exam: alert, oriented x 3, cooperative Skin Exam: warm, dry Eye Exam: No scleral icterus, No pale conjunctivae Ears, Nose, Throat Exam: moist mucous membranes Neck Exam: non-tender, supple Respiratory Exam: diminished breath sounds, prolonged expirations, wheezing, No crackles/rales, No rhonchi Cardiovascular Exam: regular rate/rhythm, normal heart sounds Extremity Exam: normal inspection, No calf tenderness, No pedal edema OBJECTIVE DATA Vital Signs: Vital Signs - 24 hr Temp Pulse Resp BP Pulse Ox 04/28/18 08:00 18 04/28/18 07:24 98.1 F 73 18 98/53 97 04/28/18 07:15 82 18 97 04/28/18 03:59 98.5 F 61 18 116/57 96 04/28/18 03:26 61 18 94 L 04/27/18 23:41 98.3 F 68 20 115/58 95 04/27/18 23:34 67 20 95 04/27/18 19:39 70 20 93 L 04/27/18 18:56 97.5 F 68 22 156/75 96 04/27/18 16:00 98.3 F 79 18 131/60 94 L 04/27/18 15:20 84 18 95 04/27/18 12:00 18 04/27/18 11:34 97.4 F 94 H 18 113/58 95 04/27/18 11:09 94 H 18 95 Oxygen-Last 24 hours O2 Percentage 4 Liters = 36% O2 Percentage 4 Liters = 36% O2 Percentage 4 Liters = 36% O2 Percentage 4 Liters = 36% O2 Percentage 4 Liters = 36% O2 Percentage 4 Liters = 36% Pain Assessment - Last Documented Pain Intensity 5 Pain Scale Used [facility] Intake and Output: Intake & Output 04/25/18 04/26/18 04/27/18 04/28/18 11:59 11:59 11:59 11:59 Intake Total 965 3009 1600 Output Total 198 127 2351 Balance 664 2909 400 Weight 82.55 kg 82.55 kg Lab Results: Accuchecks Date 04/28/18 Date 04/27/18 Date 04/27/18 Time 07:30 Time 18:00 Time 11:30 Accucheck Value: 132 Accucheck Value: 262 Accucheck Value: 149 Accucheck Value: 152 Assessment/Plan (1) Acute exacerbation of chronic obstructive airways disease Current Visit: Yes Status: Acute Onset Date: ~04/25/18 Assessment & Plan: continues with dimished air movement and persistent dyspnea slightly better today compared to yesterday will try small decrease on the steroids from 60 q6h to 60 q8h will also decrease lisinopril from 40 to 20 with the lower blood pressure readings today and yesterday continue the levaquin encourage ambulation as tolerated. continue scheduled nebs and oxygen supplementation Code(s): J44.1 - CHRONIC OBSTRUCTIVE PULMONARY DISEASE W (ACUTE) EXACERBATION (2) Diabetes mellitus Current Visit: Yes Status: Chronic Onset Date: ~04/25/18 Qualifiers: Diabetes mellitus type: type 2 Diabetes mellitus nurse paralegal insulin use: without long-term use Diabetes mellitus complication status: without complication Qualified Code(s): E11.9 - Type 2 diabetes mellitus without complications Code(s): E11.9 - TYPE 2 DIABETES MELLITUS WITHOUT COMPLICATIONS (3) Hypertension Current Visit: Yes Status: Chronic Qualifiers: Hypertension type: essential hypertension Qualified Code(s): I10 - Essential (primary) hypertension Code(s): I10 - ESSENTIAL (PRIMARY) HYPERTENSION (4) Tobacco dependence Current Visit: Yes Status: Chronic Code(s): F17.200 - NICOTINE DEPENDENCE, UNSPECIFIED, UNCOMPLICATED
[2018-04-28] MEDS: ENOXAPARIN SODIUM SQ SCH (11:51)
[2018-04-28] MEDS: ESTRACE 1 MG PO SCH (21:35)
[2018-04-28] MEDS: Protonix 20MG Tablet PO SCH (21:35)
[2018-04-28] MEDS: Zestril 20 MG PO SCH (21:35)
[2018-04-28] MEDS: Desyrel 150 MG PO SCH (21:35)
[2018-04-28] MEDS: Lexapro 10 MG PO SCH (21:35)
[2018-04-28] MEDS: NovoLOG Insulin SQ PRN (21:36)
[2018-04-28] MEDS: NORCO 5/325 MG PO PRN (21:50)
[2018-04-29] MEDS: DUONEB 0.5-3 MG/3 ml Neb IH SCH ×6 (03:07→22:39)
[2018-04-29] MEDS: solu-MEDROL 125 MG IV SCH ×3 (05:31→22:16)
[2018-04-29] MEDS: Phenergan 25 MG INJ IV PRN ×3 (05:31→22:20)
[2018-04-29] MEDS: Advair Hfa 115/21 Common canister IH SCH ×2 (06:59→18:58)
--- NOTE | 2018-04-29 08:51 | PCM.NOTE ---
Date and Time: 04/29/18848 Subjective Assessment: Pt is eating more. Still having "crackly" breathing but was up out of bed yesterday a bit. Did make her quite short of breath. - Review of Systems Constitutional: No Fever Respiratory: Cough, Short Of Breath Objective Exam General Appearance: no apparent distress, alert Neurologic Exam: oriented x 3, cooperative Skin Exam: normal color, warm, dry, No rash Eye Exam: eyes nml inspection Respiratory Exam: diminished breath sounds (poor to fair air exchange), prolonged expirations, wheezing (scattered throughout), No crackles/rales, No rhonchi Cardiovascular Exam: regular rate/rhythm, normal heart sounds, No murmur Extremity Exam: swelling (trace pretibial edema bilat) Back Exam: normal inspection, No rash OBJECTIVE DATA Vital Signs: Vital Signs - 24 hr Temp Pulse Resp BP Pulse Ox 04/29/18 08:00 18 04/29/18 07:05 98.2 F 63 18 156/74 95 04/29/18 07:00 63 18 95 04/29/18 04:10 98.1 F 69 20 161/71 97 04/29/18 04:00 18 04/29/18 03:07 70 18 97 04/29/18 00:00 20 04/28/18 23:34 98.2 F 79 20 165/78 97 04/28/18 23:04 83 18 97 04/28/18 20:00 18 04/28/18 19:28 97.9 F 68 18 137/82 97 04/28/18 19:18 69 18 97 04/28/18 16:17 97.5 F 71 20 164/87 97 04/28/18 16:00 20 04/28/18 14:39 77 18 98 04/28/18 12:30 97.5 F 94 H 20 118/57 96 04/28/18 12:00 20 04/28/18 11:13 84 18 95 Oxygen-Last 24 hours O2 Percentage 3 Liters = 32% O2 Percentage 4 Liters = 36% O2 Percentage 4 Liters = 36% O2 Percentage 4 Liters = 36% O2 Percentage 4 Liters = 36% O2 Percentage 4 Liters = 36% Pain Assessment - Last Documented Pain Intensity 4 Pain Scale Used 0-10 Pain Scale Intake and Output: Intake & Output 04/26/18 04/27/18 04/28/18/15/18 11:59 11:59 11:59 11:59 Intake Total 965 3009 1600 3140 Output Total 953 006 5280 2300 Balance 665 2359 -400 840 Weight 82.55 kg 82.55 kg Lab Results: Accuchecks Date 04/29/18 Date 04/28/18 Date 04/28/18 Date 04/28/18 Time 07:30 Time 21:40 Time 16:30 Time 11:30 Accucheck Value: 131 Accucheck Value: 207 Accucheck Value: 186 Accucheck Value: 106 Assessment/Plan (1) Acute exacerbation of chronic obstructive airways disease Current Visit: Yes Status: Acute Onset Date: ~04/25/18 Assessment & Plan: Doing better. Will keep her on levaquin and on solumedrol 60mg IV q8h for now. Code(s): J44.1 - CHRONIC OBSTRUCTIVE PULMONARY DISEASE W (ACUTE) EXACERBATION (2) Chronic respiratory failure Current Visit: No Status: Chronic Qualifiers: Respiratory failure complication: hypoxia Qualified Code(s): J96.11 - Chronic respiratory failure with hypoxia Code(s): J96.10 - CHRONIC RESPIRATORY FAILURE, UNSP W HYPOXIA OR HYPERCAPNIA (3) Hypertension Current Visit: Yes Status: Chronic Qualifiers: Hypertension type: essential hypertension Qualified Code(s): I10 - Essential (primary) hypertension Assessment & Plan: BP elevated with decrease in lisinopril - was on 40mg daily, then decreased to 20mg po daily. Will increase slightly to 30mg po daily. Code(s): I10 - ESSENTIAL (PRIMARY) HYPERTENSION (4) Diabetes mellitus Current Visit: Yes Status: Chronic Onset Date: ~04/25/18 Qualifiers: Diabetes mellitus type: type 2 Diabetes mellitus detention insulin use: without detention use Diabetes mellitus complication status: without complication Qualified Code(s): E11.9 - Type 2 diabetes mellitus without complications Code(s): E11.9 - TYPE 2 DIABETES MELLITUS WITHOUT COMPLICATIONS
[2018-04-29] MEDS: Levofloxacin 500MG/100ML D5W 500 MG/100 ML BAG IV SCH (09:13)
[2018-04-29] MEDS: ENOXAPARIN SODIUM SQ SCH (09:13)
[2018-04-29] MEDS ORDERED: Zestril 10 MG PO SCH (10:00)
[2018-04-29] MEDS: NORCO 5/325 MG PO PRN (16:35)
[2018-04-29] MEDS ORDERED: Colace 100 MG PO PRN (16:42)
[2018-04-29] MEDS ORDERED: Miralax Powder 17GM PACKET PO PRN (16:42)
[2018-04-29] MEDS: Protonix 20MG Tablet PO SCH (22:06)
[2018-04-29] MEDS: Lexapro 10 MG PO SCH (22:06)
[2018-04-29] MEDS: Zestril 20 MG PO SCH (22:06)
[2018-04-29] MEDS: Desyrel 150 MG PO SCH (22:07)
[2018-04-29] MEDS: ESTRACE 1 MG PO SCH (22:07)
[2018-04-29] MEDS: Cyclobenzaprine 10 MG PO PRN (22:30)
[2018-04-30] MEDS: DUONEB 0.5-3 MG/3 ml Neb IH SCH ×6 (03:11→23:31)
[2018-04-30] MEDS: Phenergan 25 MG INJ IV PRN ×3 (05:51→18:11)
[2018-04-30] MEDS: solu-MEDROL 125 MG IV SCH ×3 (05:59→18:11)
[2018-04-30] MEDS: Advair Hfa 115/21 Common canister IH SCH ×2 (06:42→19:33)
[2018-04-30] MEDS ORDERED: Zestril 20 MG PO SCH (08:39)
[2018-04-30] MEDS ORDERED: NORVASC 5 MG PO PRN (08:39)
--- NOTE | 2018-04-30 08:44 | PCM.NOTE ---
Date and Time: 04/30/18 0839 Subjective Assessment: BP 165 - 188 systolic last night. She is phillip po well. Up out of bed with shortness of breath but improved over the day before. Tolerating po. On O2 4L NC. - Review of Systems Constitutional: No Fever Respiratory: Cough, Short Of Breath Objective Exam General Appearance: no apparent distress, alert Neurologic Exam: oriented x 3, cooperative Skin Exam: normal color, warm, dry, No rash Ears, Nose, Throat Exam: moist mucous membranes Respiratory Exam: diminished breath sounds (fair air exchange), wheezing ( scattered, mild), No crackles/rales, No rhonchi Cardiovascular Exam: regular rate/rhythm, normal heart sounds, No murmur Extremity Exam: normal inspection, No pedal edema, No swelling OBJECTIVE DATA Vital Signs: Vital Signs - 24 hr Temp Pulse Resp BP BP Pulse Ox 04/30/18 07:24 98.3 F 61 18 188/106 95 04/30/18 06:45 61 18 95 04/30/18 04:00 97.9 F 64 24 173/94 95 04/30/18 00:00 97.8 F 69 22 156/79 96 04/29/18 22:39 70 18 97 04/29/18 20:00 22 04/29/18 19:41 97.8 F 68 22 165/83 95 04/29/18 18:59 76 18 96 04/29/18 16:00 98.6 F 76 20 167/91 95 04/29/18 14:41 73 18 96 04/29/18 12:00 18 04/29/18 11:43 77 18 145/76 96 04/29/18 10:39 68 20 Oxygen-Last 24 hours O2 Percentage 4 Liters = 36% O2 Percentage 4 Liters = 36% O2 Percentage 4 Liters = 36% O2 Percentage 4 Liters = 36% O2 Percentage 4 Liters = 36% O2 Percentage 3 Liters = 32% Pain Assessment - Last Documented Pain Intensity 3 Pain Scale Used 0-10 Pain Scale Intake and Output: Intake & Output 04/27/18 04/28/18 04/29/18 04/30/18 11:59 11:59 11:59 11:59 Intake Total 3009 1600 3140 1120 Output Total 650 2000 2300 1500 Balance 2359 -400 840 -380 Weight 82.55 kg Lab Results: Accuchecks Date 04/29/18 Date 04/29/18 Time 22:00 Time 11:30 Accucheck Value: 179 Accucheck Value: 138 Accucheck Value: 128 Assessment/Plan (1) Acute exacerbation of chronic obstructive airways disease Current Visit: Yes Status: Acute Onset Date: ~04/25/18 Assessment & Plan: She is improving slowly but steadily. On Levaquin day #6. She is still on quite a bit of steroid so will start decreasing that slowly. She will need to be here at least until tomorrow but possibly 2 more days. Code(s): J44.1 - CHRONIC OBSTRUCTIVE PULMONARY DISEASE W (ACUTE) EXACERBATION (2) Chronic respiratory failure Current Visit: No Status: Chronic Qualifiers: Respiratory failure complication: hypoxia Qualified Code(s): J96.11 - Chronic respiratory failure with hypoxia Code(s): J96.10 - CHRONIC RESPIRATORY FAILURE, UNSP W HYPOXIA OR HYPERCAPNIA (3) Hypertension Current Visit: Yes Status: Chronic Qualifiers: Hypertension type: essential hypertension Qualified Code(s): I10 - Essential (primary) hypertension Assessment & Plan: We had decreased her lisinopril from 40mg to 20mg/d due to some lower BP - now BP are elevated so I have increased the lisinopril back to baseline of 40mg/d and added amlodipine prn BP > 180 systolic or > 110 diastolic. Code(s): I10 - ESSENTIAL (PRIMARY) HYPERTENSION (4) Diabetes mellitus Current Visit: Yes Status: Chronic Onset Date: ~04/25/18 Qualifiers: Diabetes mellitus type: type 2 Diabetes mellitus retirement insulin use: without termite helper use Diabetes mellitus complication status: without complication Qualified Code(s): E11.9 - Type 2 diabetes mellitus without complications Assessment & Plan: most BS in lower 100s, but some occ over 200 requiring SS coverage. Code(s): E11.9 - TYPE 2 DIABETES MELLITUS WITHOUT COMPLICATIONS
[2018-04-30] MEDS: ENOXAPARIN SODIUM SQ SCH (09:00)
[2018-04-30] MEDS: Levofloxacin 500MG/100ML D5W 500 MG/100 ML BAG IV SCH (09:02)
[2018-04-30] MEDS ORDERED: NORCO 5/325 MG PO PRN (16:11)
[2018-04-30] MEDS: NovoLOG Insulin SQ PRN ×2 (16:56→21:30)
[2018-04-30] MEDS: Desyrel 150 MG PO SCH (21:27)
[2018-04-30] MEDS: Protonix 20MG Tablet PO SCH (21:27)
[2018-04-30] MEDS: Lexapro 10 MG PO SCH (21:27)
[2018-04-30] MEDS: ESTRACE 1 MG PO SCH (21:27)
[2018-04-30] MEDS: Cyclobenzaprine 10 MG PO PRN (23:12)
[2018-05-01] MEDS: solu-MEDROL 125 MG IV SCH ×2 (01:58→05:15)
[2018-05-01] MEDS: DUONEB 0.5-3 MG/3 ml Neb IH SCH ×2 (03:43→06:46)
[2018-05-01] MEDS: Advair Hfa 115/21 Common canister IH SCH (06:47)
[2018-05-01 07:22] VITALS: BP 174/86; PULSE 63; O2SAT 96
--- NOTE | 2018-05-01 09:03 | PCM.DS ---
Discharge Summary Date of Admission: 04/25/18 15:20 Admitting Physician: TEREZA VILLATORO Primary Care Provider: TEREZA VILLATORO Allergies Allergies clarithromycin [From Biaxin] Allergy (Mild, Verified 07/02/17 16:54) Nausea AND DIARRHEA ketorolac tromethamine [From Toradol] Allergy (Mild, Verified 07/02/17 16:54) VOMITED tramadol Allergy (Mild, Verified 07/02/17 16:54) NAUSEA prednisone Adverse Reaction (Severe, Verified 07/02/17 16:54) Rash ITCHING midazolam HCl [From Versed] Adverse Reaction (Intermediate, Verified 07/02/17 16 :54) Nausea VOMITING Hospital Summary - Hospital Course Hospital Course: Pt was seen in c/o several weeks of respiratory illness; was found to be quite wheezy and was admitted directly to the hospital for IV steroids, nebulizer tx, and IV antibiotics. CXR non acute. She remained wheezy on the first morning after admission and her steroids were increased from 40mg solumedrol IV TID to 125mg IV; the next day they were decreased. She gradually became less wheezy and moved more oxygen. Yesterday she sounded much better and was up out of bed (although with some shortness of breath). Her steroids were again decreased. Last night her IV went bad and staff was unable to get another IV, so her steroids were held through the night. This morning her exam is encouraging so she will be sent home on po steroids and levaquin. She had positive nitrites on her UA at admission; UCx just showed normal josh. - Vitals & Intake/Output Vital Signs: Vital Signs Temperature 98.3 F 05/01/18 07:21 Pulse Rate 63 05/01/18 07:21 Respiratory Rate 16 05/01/18 08:00 Blood Pressure 174/86 05/01/18 07:21 O2 Sat by Pulse Oximetry 96 05/01/18 07:21 Oxygen-Last Documented O2 Percentage 2 Liters = 28% Intake & Output: Intake & Output 04/28/18 04/29/18 04/30/18 05/01/18 11:59 11:59 11:59 11:59 Intake Total 1600 3140 1600 2210 Output Total 2000 2300 1500 1700 Balance -400 840 100 510 - Lab Result Diagrams: 04/25/18 16:37 04/25/18 16:37 Lab Results-Last 24 Hrs: Accuchecks Date 05/01/18 Date 04/30/18 Date 04/30/18 Time 07:30 Time 11:30 Accucheck Value: 144 Accucheck Value: 253 Accucheck Value: 219 Accucheck Value: 173 Micro Results-Entire Visit: Microbiology 04/25/18 22:15 Urine Culture - Final Urine, Void <10K NORMAL SKIN JOSH PROBABLE SKIN CONTAMINANT Accuchecks Date 05/01/18 Date 04/30/18 Date 04/30/18 Time 07:30 Time 11:30 Accucheck Value: 144 Accucheck Value: 253 Accucheck Value: 219 Accucheck Value: 173 - Procedures and Test Procedures and Tests throughout Hospitalization: Therapy Orders & Screens 04/25/18 07:00 Peak Expiratory Flow Rate DAILY Comment: Reason For Exam: Diagnosis: [facility] copd,failed outpatient 04/25/18 15:28 Oxygen NASAL CANNULA 2 lpm Comment: to keep sats >90% Diagnosis: [facility] copd,failed outpatient 04/25/18 15:30 Respiratory Nebulizer Q6H Comment: maryjane Diagnosis: [facility] copd,failed outpatient 04/25/18 19:00 Respiratory MDI BID Comment: Advair 115/21 2 puffs BID Diagnosis: [facility] copd,failed outpatient 04/26/18 07:00 Respiratory Therapy Assessment DAILY Comment: Diagnosis: [facility] copd,failed outpatient Discharge Exam General Appearance: no apparent distress, alert (woke pt from a sound sleep; wakes to voice) Neurologic Exam: oriented x 3, cooperative Skin Exam: normal color, warm, dry, No rash Ears, Nose, Throat Exam: moist mucous membranes Respiratory Exam: lungs clear, diminished breath sounds (good air exchange), wheezing (very faint scattered wheeze), No crackles/rales, No rhonchi Cardiovascular Exam: regular rate/rhythm, normal heart sounds, No murmur Gastrointestinal/Abdomen Exam: soft, normal bowel sounds, No tenderness Extremity Exam: normal inspection, No pedal edema, No swelling Final Diagnosis/Problem List - Final Discharge Diagnosis/Problem (1) Acute exacerbation of chronic obstructive airways disease Current Visit: Yes Status: Acute Onset Date: ~04/25/18 Assessment & Plan: Doing much better. D/c to home on methylprednisolone and levaquin. (2) Chronic respiratory failure Current Visit: No Status: Chronic (3) Hypertension Current Visit: Yes Status: Chronic Assessment & Plan: will send her home on 5mg po amlodipine daily (4) Diabetes mellitus Current Visit: Yes Status: Chronic Onset Date: ~04/25/18 - Discharge Disposition: Home, Self-Care Condition: Stable Prescriptions: New Levofloxacin [Levaquin] 500 mg PO DAILY #7 tablet Methylprednisolone [Medrol] 16 mg PO DAILY #17 tablet Amlodipine Besylate 5 mg [Norvasc 5 mg] 5 mg PO DAILY #30 tablet Continue Lisinopril 40 mg PO HS Estradiol 2 mg PO HS Pantoprazole 20 mg [Protonix 20MG Tablet] 20 mg PO HS Fluticasone/Salmeterol 115/21* [Advair Hfa 115/21 Mcg Inhaler] 2 puff IH BIDRT Tizanidine HCl 4 mg PO BID PRN PRN Reason: Muscle Spasms Trazodone HCl 150 mg PO HS Hydrocodone Bit/Acetaminophen [[place] 5-325 Tablet] 1 each PO Q6H PRN PRN #15 tablet MDD 4 PRN Reason: Pain Albuterol 8 gm Mdi Hfa [Ventolin Hfa MDI] 8 gm IH Q4HPRN PRN PRN Reason: Shortness Of Breath/Wheezing Escitalopram Oxalate 10 mg [Lexapro 10 MG] 20 mg PO HS Instructions: Quitting Smoking, Exacerbation of COPD (DC) Follow up with: TEREZA VILLATORO [Primary Care Provider] - 05/10/18 11:15 am Forms: Discharge Instructions
== END 2018-05-01 10:00 | disposition home or self-care (01) | DRG 191 ==
LOC: MED SURG 15:20
PROVIDERS: ADMIT Family Medicine; ATTEND Family Medicine
DX: J44.1 Chronic obstructive pulmonary disease with (acute) exacerbation (principal); J96.11 Chronic respiratory failure with hypoxia; I10 Essential (primary) hypertension; E11.9 Type 2 diabetes mellitus without complications; G62.9 Polyneuropathy, unspecified; M19.90 Unspecified osteoarthritis, unspecified site; F41.9 Anxiety disorder, unspecified; F32.9 Major depressive disorder, single episode, unspecified; M47.9 Spondylosis, unspecified; Z72.0 Tobacco use
CPT/HCPCS: 36415; 71046; 80053; 81001; 82962; 83036; 85027; 87086; 94150; 94640; 94760; J1650; J1956; J2550; J2920; J2930; A9270-GY

== ENCOUNTER 2018-11-18 23:01 | Emergency (ER) | payer MEDICARE ==
[2018-11-18 23:25] VITALS: BP 123/94; PULSE 72
[2018-11-18] MEDS ORDERED: Sodium Chloride 0.9% 1000 ML 1,000 ML IV STA (23:38)
--- NOTE | 2018-11-18 23:45 | ERPHSYRPT ---
- History of Present Illness Time Seen by Provider: 11/18/18 23:33 Source: patient Exam Limitations: no limitations Patient Subjective Stated Complaint: Pt c/o visual hallucinations starting approx 13 months ago that she has not been seen for. pt states these suddenly worsened 2 days ago "and now i'm scared of them, they are women and children dressed all goth". denies auditory hallucinations, pt convincingly denies si/ hi. pt adds "before they got worse i took some benadryl and some other allergy medicine for seasonal allergies" that caused her eyes to become reddened and itch. Triage Nursing Assessment: pink/warm/dry, resp easy, steady gait, a&ox4, pt keeping eyes closed majority of time. brittany eyes are red and puffy, pt restless in bed she appears very anxious. Physician History: 43-year-old white female tells the nurse that she's been having hallucinations for 13 months which has been worse for the past 2 days she tells me that she apparently was at her 's house yesterday he went out to smoke he she noticed a people were looking in at her she states that she feels like the people are staring her she denies any homicidal or suicidal ideation. She does state that she has taken some antihistamines she also admits to using some Visine prior to arrival into the emergency room. Past medical history includes migraines, high blood pressure, COPD, asthma, arthritis, colitis, hemorrhoids, anxiety, depression, panic disorder, abnormal uterine bleeding, degenerative disc disease of the lumbar spine, fracture of the back T2 and L2, chronic pain. Past surgical history includes orthopedic surgery, , hysterectomy, carpal tunnel, right shoulder surgery social history patient admits to tobacco use Timing/Duration: other (patient states apparently chronic hallucinations for a year but increased last 2 days) Severity: moderate Modifying Factors: Improves With: nothing Associated Symptoms: No nausea, No vomiting, No abdominal pain, No shortness of breath, No heartburn, No diaphoresis, No cough, No chills, No chest pain, No fever, No headaches, No loss of appetite, No malaise, No rash, No syncope, No seizure, No weakness Allergies/Adverse Reactions: prednisone Allergy (Severe, Verified 11/18/18 23:06) Rash ITCHING ketorolac tromethamine [From Toradol] Allergy (Mild, Verified 11/18/18 23:06) VOMITED tramadol Allergy (Mild, Verified 11/18/18 23:06) NAUSEA clarithromycin [From Biaxin] Adverse Reaction (Intermediate, Verified 11/18/18 23:06) Nausea AND DIARRHEA midazolam HCl [From Versed] Adverse Reaction (Intermediate, Verified 11/18/18 23 :06) Nausea VOMITING Home Medications: Estradiol 2 mg PO HS 10/28/14 [History] Lisinopril 40 mg PO HS 10/28/14 [History] Pantoprazole 20 mg [Protonix 20MG Tablet] 20 mg PO HS 08/07/15 [History] Fluticasone/Salmeterol 115/21* [Advair Hfa 115/21 Mcg Inhaler] 2 puff IH BIDRT 06/06/16 [History] Tizanidine HCl 4 mg PO BID PRN 05/22/17 [History] Trazodone HCl 150 mg PO HS PRN 05/22/17 [History] Albuterol 8 gm Mdi Hfa [Ventolin Hfa MDI] 8 gm IH Q4HPRN PRN 04/25/18 [ History] Escitalopram Oxalate 10 mg [Lexapro 10 MG] 20 mg PO HS 04/25/18 [History] Amitriptyline HCl 10 mg PO HS 11/18/18 [History] Amitriptyline HCl 25 mg [Elavil 25 mg] 75 mg PO HS PRN 11/18/18 [History] Metoclopramide HCl 10 mg PO TID PRN 11/18/18 [History] Tizanidine HCl 4 mg [Zanaflex 4 MG] 8 mg PO HS 11/18/18 [History] Hx Tetanus, Diphtheria Vaccination/Date Given: No Hx Influenza Vaccination/Date Given: No Hx Pneumococcal Vaccination/Date Given: No Immunizations Up to Date: No - Review of Systems Constitutional: No Fever, No Chills Eyes: Itchy, Other (patient using Visine), No Eye Pain, No Photophobia Ears, Nose, & Throat: No Symptoms Respiratory: No Cough, No Dyspnea Cardiac: No Chest Pain, No Edema, No Syncope Abdominal/Gastrointestinal: No Abdominal Pain, No Nausea, No Vomiting, No Diarrhea Genitourinary Symptoms: No Dysuria Musculoskeletal: No Back Pain, No Neck Pain Skin: No Rash Neurological: No Dizziness, No Focal Weakness, No Sensory Changes Psychological: Anxiety, Hallucinations (visual hallucinations), No Alcohol Abuse , No Drug Abuse, No Suicidal Ideations, No Homicidal Ideations Endocrine: No Symptoms All Other Systems: Reviewed and Negative - Past Medical History Pertinent Past Medical History: Yes Neurological History: Peripheral Neuropathy ENT History: No Pertinent History Cardiac History: Hypertension Respiratory History: Asthma, Bronchitis, COPD Endocrine Medical History: No Pertinent History Musculoskeletal History: Arthritis, Fractures GI Medical History: Colitis, Hemorrhoids History: Other Psycho-Social History: Anxiety, Depression, Panic Disorder Female Reproductive Disorders: Abnormal Uterine Bleeding Other Medical History: wears O2 at night, DJD of the L-spine. - Past Surgical History Past Surgical History: Yes Neuro Surgical History: No Pertinent History Cardiac: No Pertinent History Respiratory: No Pertinent History Gastrointestinal: No Pertinent History Genitourinary: No Pertinent History Musculoskeletal: Orthopedic Surgery Female Surgical History: Section, Hysterectomy Other Surgical History: rt shoulder, AND CARPLETUNNEL BRITTANY - Social History Smoking Status: Current every day smoker How long have you smoked: 24 Exposure to second hand smoke: Yes Drug Use: none Patient Lives Alone: No Significant Family History: no pertinent family hx - Female History Hx Last Menstrual Period: hysterectomy Hx Now: No - Nursing Vital Signs Nursing Vital Signs: Initial Vital Signs Temperature 98.7 F 11/18/18 23:08 Pulse Rate 72 11/18/18 23:08 Respiratory Rate 16 11/18/18 23:08 Blood Pressure 123/94 11/18/18 23:08 O2 Sat by Pulse Oximetry 97 11/18/18 23:08 Pain Scale Pain Intensity 5 - Physical Exam General Appearance: no apparent distress, alert Eye Exam: PERRL/EOMI, eyes nml inspection, other (conjunctiva are pale fundi are unremarkable) Ears, Nose, Throat Exam: normal ENT inspection, TMs normal, pharynx normal, moist mucous membranes Neck Exam: normal inspection, non-tender, supple, full range of motion Respiratory Exam: normal breath sounds, lungs clear, No respiratory distress Cardiovascular Exam: regular rate/rhythm, normal heart sounds, normal peripheral pulses, capillary refill <2 sec Gastrointestinal/Abdomen Exam: soft, normal bowel sounds, No tenderness, No mass Back Exam: normal inspection, normal range of motion, No CVA tenderness, No vertebral tenderness Extremity Exam: normal inspection, normal range of motion, pelvis stable Neurologic Exam: alert, oriented x 3, cooperative, slasher operator II-XII nml as tested, normal mood/affect, nml cerebellar function, nml station & gait, sensation nml, No motor deficits Skin Exam: normal color, warm, dry, No rash SpO2 Interpretation: normal (97%) SpO2: 97 - Course Nursing assessment & vital signs reviewed: Yes EKG Interpreted by Me: RATE (66 bpm), Sinus Rhythm, NORMAL AXIS, Other (EKG: Sinus rhythm, 66 beats per minute, normal axis, no acute ST or T wave changes, essentially normal EKG) Ordered Tests: Active Orders 24 hr Category Date Time Status EKG-ER Only STAT Care 11/18/18 23:38 Active IV Insertion STAT Care 11/18/18 23:38 Active Pulse Oximetry (ED) STAT Care 11/18/18 23:38 Active ACETAMINOPHEN Stat Lab 11/18/18 23:38 Completed CBC W DIFF Stat Lab 11/18/18 23:38 Completed CMP Stat Lab 11/18/18 23:38 Completed ETHYL ALCOHOL Stat Lab 11/18/18 23:38 Completed SALICYLATE Stat Lab 11/18/18 23:38 Completed UA W/RFX UR CULTURE Stat Lab 11/19/18 01:50 Completed Urine Triage Profile Stat Lab 11/19/18 01:50 Completed Medication Summary Discontinued Medications Generic Name Dose Route Start Last Admin Trade Name Scarq PRN Reason Stop Dose Admin Acetaminophen 650 mg 11/18/18 23:59 11/19/18 00:03 Tylenol 325 Mg PO 11/19/18 00:00 650 mg STAT ONE Administration Acetaminophen Confirm 11/19/18 00:02 Tylenol 325 Mg Administered 11/19/18 00:03 Dose 650 mg .ROUTE .STK-MED ONE Sodium Chloride 1,000 mls @ 999 mls/hr 11/18/18 23:38 11/19/18 01:39 Sodium Chloride 0.9% 1000 Ml IV 11/19/18 00:38 Infused .Q1H1M STA Infusion Sodium Chloride Confirm 11/18/18 23:46 Sodium Chloride 0.9% 1000 Ml Administered 11/18/18 23:47 Dose 1,000 mls @ ud .ROUTE .STK-MED ONE Lab/Rad Data: Laboratory Result Diagrams 11/19/18 00:00 11/19/18 00:00 Laboratory Results 11/19/18 11/19/18 11/19/18 Range/Units 01:50 01:50 00:00 WBC (4.0-10.5) K/mm3 RBC (4.1-5.4) M/mm3 Hgb (12.0-16.0) gm/dl Hct (35-47) % MCV (78-100) fl MCH (26-32) pg MCHC (32-36) g/dl RDW (11.5-14.0) % Plt Count (150-450) K/mm3 MPV (6-9.5) fl Gran % (36.0-66.0) % Eos # (Auto) (0-0.5) Absolute Lymphs (auto) (1.0-4.6) Absolute Monos (auto) (0.0-1.3) Lymphocytes % (24.0-44.0) % Monocytes % (0.0-12.0) % Eosinophils % (0.00-5.0) % Basophils % (0.0-0.4) % Absolute Granulocytes (1.4-6.9) Basophils # (0-0.4) Sodium (137-145) mmol/L Potassium (3.5-5.1) mmol/L Chloride (98-107) mmol/L Carbon Dioxide (22-30) mmol/L Anion Gap (5-15) MEQ/L BUN (7-17) mg/dL Creatinine (0.52-1.04) mg/dL Estimated GFR ML/MIN Glucose (74-106) mg/dL Calcium (8.4-10.2) mg/dL Total Bilirubin (0.2-1.3) mg/dL AST (14-36) U/L ALT (0-35) U/L Alkaline Phosphatase (38-126) U/L Serum Total Protein (6.3-8.2) g/dL Albumin (3.5-5.0) g/dL Serum , Qual NEGATIVE (Negative) Urine Color YELLOW (YELLOW) Urine Appearance CLEAR (CLEAR) Urine pH 6.0 (5-6) Ur Specific [place] 1.024 (1.005-1.025) Urine Protein NEGATIVE (Negative) Urine Ketones TRACE (NEGATIVE) Urine Blood NEGATIVE (0-5) Casey/ul Urine Nitrite NEGATIVE (NEGATIVE) Urine Bilirubin NEGATIVE (NEGATIVE) Urine Urobilinogen 2 (0-1) mg/dL Ur Leukocyte Esterase NEGATIVE (NEGATIVE) Urine WBC (Auto) 0-2 (0-5) /HPF Urine RBC (Auto) 0-2 (0-2) /HPF U Hyaline Cast (Auto) 0-2 (0-2) /LPF U Epithel Cells (Auto) FEW (FEW) /HPF Urine Culture Reflexed NO (NO) Urine Glucose NEGATIVE (NEGATIVE) mg/dL Salicylates (2-20) mg/dL Urine Opiates Level POSITIVE (NEGATIVE) Ur Methadone NEGATIVE (NEGATIVE) Acetaminophen (10-30) ug/ml Urine Barbiturates NEGATIVE (NEGATIVE) Ur Phencyclidine (PCP) NEGATIVE (NEGATIVE) Urine Amphetamine POSITIVE (NEGATIVE) U Benzodiazepine Level NEGATIVE (NEGATIVE) Urine Cocaine NEGATIVE (NEGATIVE) Urine Marijuana (THC) NEGATIVE (NEGATIVE) Ethyl Alcohol (0-10) mg/dL 11/19/18 11/19/18 Range/Units 00:00 00:00 WBC 15.5 H (4.0-10.5) K/mm3 RBC 3.55 L (4.1-5.4) M/mm3 Hgb 9.6 L (12.0-16.0) gm/dl Hct 29.1 L (35-47) % MCV 82.0 (78-100) fl MCH 27.0 (26-32) pg MCHC 33.0 (32-36) g/dl RDW 15.0 H (11.5-14.0) % Plt Count 326 (150-450) K/mm3 MPV 8.9 (6-9.5) fl Gran % 64.2 (36.0-66.0) % Eos # (Auto) 0.25 (0-0.5) Absolute Lymphs (auto) 4.31 (1.0-4.6) Absolute Monos (auto) 0.95 (0.0-1.3) Lymphocytes % 27.8 (24.0-44.0) % Monocytes % 6.1 (0.0-12.0) % Eosinophils % 1.6 (0.00-5.0) % Basophils % 0.3 (0.0-0.4) % Absolute Granulocytes 9.97 H (1.4-6.9) Basophils # 0.04 (0-0.4) Sodium 135 L (137-145) mmol/L Potassium 3.8 (3.5-5.1) mmol/L Chloride 104 (98-107) mmol/L Carbon Dioxide 20 L (22-30) mmol/L Anion Gap 14.8 (5-15) MEQ/L BUN 20 H (7-17) mg/dL Creatinine 1.34 H (0.52-1.04) mg/dL Estimated GFR 45.9 ML/MIN Glucose 127 H (74-106) mg/dL Calcium 9.0 (8.4-10.2) mg/dL Total Bilirubin 0.90 (0.2-1.3) mg/dL AST 14 (14-36) U/L ALT 13 (0-35) U/L Alkaline Phosphatase 74 (38-126) U/L Serum Total Protein 6.4 (6.3-8.2) g/dL Albumin 3.5 (3.5-5.0) g/dL Serum , Qual (Negative) Urine Color (YELLOW) Urine Appearance (CLEAR) Urine pH (5-6) Ur Specific [place] (1.005-1.025) Urine Protein (Negative) Urine Ketones (NEGATIVE) Urine Blood (0-5) Casey/ul Urine Nitrite (NEGATIVE) Urine Bilirubin (NEGATIVE) Urine Urobilinogen (0-1) mg/dL Ur Leukocyte Esterase (NEGATIVE) Urine WBC (Auto) (0-5) /HPF Urine RBC (Auto) (0-2) /HPF U Hyaline Cast (Auto) (0-2) /LPF U Epithel Cells (Auto) (FEW) /HPF Urine Culture Reflexed (NO) Urine Glucose (NEGATIVE) mg/dL Salicylates < 1.0 L (2-20) mg/dL Urine Opiates Level (NEGATIVE) Ur Methadone (NEGATIVE) Acetaminophen < 10 L (10-30) ug/ml Urine Barbiturates (NEGATIVE) Ur Phencyclidine (PCP) (NEGATIVE) Urine Amphetamine (NEGATIVE) U Benzodiazepine Level (NEGATIVE) Urine Cocaine (NEGATIVE) Urine Marijuana (THC) (NEGATIVE) Ethyl Alcohol < 10 (0-10) mg/dL - Progress Progress: improved Progress Note: 11/19/18 03:20 Patient returns a positive for amphetamines and opiates. She states now that she had taken some Adderall she will not say when she took it she also states that she took some opiates but she won't tell me where she got up from. She is not suicidal or homicidal. I've offered to call [facility] for her she does not want me to do this. Patient is stable will discharge patient. Impression 1 visual hallucinations. 2 substance abuse. - Departure Departure Disposition: Home Clinical Impression: Visual hallucinations, Substance abuse Condition: Fair Critical Care Time: No Referrals: TEREZA VILLATORO [Primary Care Provider] - Additional Instructions: Your urine drug screen turns out positive for amphetamines and opiates. You now state that you have taken Adderall a you have not specified when. You have also stated that you have taken opiates but will not state when or where he got these from. Amphetamines may cause visual hallucinations . Anticholinergics also make react with your drug screen and turn up with a false positive amphetamines. Is recommended that you avoid amphetamines avoid anticholinergics, also avoid illicit substances. Drink plenty of fluids. You have been offered a [facility] consult you have declined this. It is recommended that you drink plenty of fluids and followup with your family Return for acute distress or for severe symptoms.
[2018-11-18] MEDS ORDERED: Sodium Chloride 0.9% 1000 ML 1,000 ML ONE (23:46)
[2018-11-18] MEDS ORDERED: TYLENOL 325 MG PO ONE (23:59)
[2018-11-19] MEDS ORDERED: TYLENOL 325 MG ONE (00:02)
[2018-11-19 00:05] LABS: BASOPHIL % 0.3 % (0.0-0.4); Basophil (Absolute #) 0.04 (0-0.4); Eosinophil % 1.6 % (0.00-5.0); Eosinophil (Absolute #) 0.25 (0-0.5); Granulocyte Absolute (ANC) 9.97 (1.4-6.9); Granulocytes % 64.2 % (36.0-66.0); Hematocrit 29.1 % (35-47); Hemoglobin 9.6 gm/dl (12.0-16.0); Lymphocyte (Absolute #) 4.31 (1.0-4.6); Lymphocytes % 27.8 % (24.0-44.0); Mean Platelet Volume 8.9 fl (6-9.5); Monocyte (Absolute #) 0.95 (0.0-1.3); Monocytes % 6.1 % (0.0-12.0); Platelet Count 326 K/mm3 (150-450); Red Blood Count 3.55 M/mm3 (4.1-5.4); White Blood Count 15.5 K/mm3 (4.0-10.5)
[2018-11-19 00:21] VITALS: O2SAT 97
[2018-11-19 00:31] LABS: ALBUMIN 3.5 g/dL (3.5-5.0); ALKALINE PHOSPHATASE 74 U/L (38-126); ANION GAP 14.8 MEQ/L (5-15); BLOOD UREA NITROGEN 20 mg/dL (7-17); CHLORIDE 104 mmol/L (98-107); Carbon Dioxide 20 mmol/L (22-30); Creatinine 1 1.34 mg/dL (0.52-1.04); Glucose 127 mg/dL (74-106); Potassium 3.8 mmol/L (3.5-5.1); SGOT/AST 14 U/L (14-36); SGPT/ALT 13 U/L (0-35); SODIUM 135 mmol/L (137-145); Total Protein 6.4 g/dL (6.3-8.2)
[2018-11-19 00:32] LABS: ACETAMINOPHEN < 10 ug/ml (10-30); ETHYL ALCOHOL < 10 mg/dL (0-10); SALICYLATE < 1.0 mg/dL (2-20)
[2018-11-19 02:05] LABS: Appearance CLEAR (CLEAR); Bilirubin NEGATIVE (NEGATIVE); Blood NEGATIVE Ery/ul (0-5); Epithelial Cells FEW /HPF (FEW); Glucose NEGATIVE (NEGATIVE); Hyaline Casts 0-2 /LPF (0-2); Ketones TRACE (NEGATIVE); Leukocyte Esterase NEGATIVE (NEGATIVE); Nitrite NEGATIVE (NEGATIVE); Protein,Urine Dip NEGATIVE (Negative); RBC 0-2 /HPF (0-2); Specific Gravity 1.024 (1.005-1.025); Urobilinogen 2 mg/dL (0-1); WBC 0-2 /HPF (0-5)
[2018-11-19 02:17] LABS: Barbiturate,Urine NEGATIVE (NEGATIVE); Benzodiazepine,Urine NEGATIVE (NEGATIVE); Cocaine,Urine NEGATIVE (NEGATIVE); Methadone,Urine NEGATIVE (NEGATIVE); Opiate,Urine POSITIVE (NEGATIVE); THC,Urine NEGATIVE (NEGATIVE)
[2018-11-19 02:29] LABS: PCP,Urine NEGATIVE (NEGATIVE)
[2018-11-19 03:14] LABS: Amphetamine,Urine POSITIVE (NEGATIVE)
== END 2018-11-19 03:29 | disposition home or self-care (01) ==
LOC: ED 23:01
DX: R44.1 Visual hallucinations (principal); F19.10 Other psychoactive substance abuse, uncomplicated; Z71.51 Drug abuse counseling and surveillance of drug abuser; Z79.891 Long term (current) use of opiate analgesic; Z79.899 Other long term (current) drug therapy
CPT/HCPCS: 36000; 36415; 80053; 80307; 81001; 81025; 85025; 93005; 96360; 99284; G0480; G0481; P9612; A9270-GY

== ENCOUNTER 2019-01-09 20:11 | Emergency (ER) | payer MEDICARE ==
--- NOTE | 2019-01-09 20:30 | ERPHSYRPT ---
- History of Present Illness Time Seen by Provider: 01/09/19 20:20 Source: patient, police Exam Limitations: no limitations Physician History: 43 y/o white female brought in by police for immediate fpc for verbalizing intent on hurting herself. pt admits to adderal ingestion, nothing else. med not hers. pt tearful. 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 in police report pt told she was going to hang herself at home. when police asked pt if she was wanting to harm herself or thought of harming herself, pt stated yes. family concerned pt is not in her right mind. pt denies suicidal attempts in the past. pt is not homicidal. pt denies headache, denies cp, denies abd pain. Timing/Duration: today Severity of Symptoms-Max: moderate Severity of Symptoms-Current: moderate Context related to: daughter, other (family issues) Suicidal thoughts: gesture, other (verbalizing) Associated Symptoms: anxiety, depressed, frustrated Previous symptoms: no prior history Allergies/Adverse Reactions: prednisone Allergy (Severe, Verified 11/18/18 23:06) Rash ITCHING ketorolac tromethamine [From Toradol] Allergy (Mild, Verified 11/18/18 23:06) VOMITED tramadol Allergy (Mild, Verified 11/18/18 23:06) NAUSEA alprazolam [From Xanax] Adverse Reaction (Intermediate, Verified 01/09/19 20:37) clarithromycin [From Biaxin] Adverse Reaction (Intermediate, Verified 11/18/18 23:06) Nausea AND DIARRHEA erythromycin base Adverse Reaction (Intermediate, Verified 01/09/19 20:36) Vomiting midazolam HCl [From Versed] Adverse Reaction (Intermediate, Verified 11/18/18 23 :06) Nausea VOMITING Home Medications: Estradiol 2 mg PO HS 10/28/14 [History] Lisinopril 40 mg PO HS 10/28/14 [History] Pantoprazole 20 mg [Protonix 20MG Tablet] 20 mg PO HS 08/07/15 [History] Fluticasone/Salmeterol 115/21* [Advair Hfa 115/21 Mcg Inhaler] 2 puff IH BIDRT 06/06/16 [History] Tizanidine HCl 4 mg PO DAILY 05/22/17 [History] Trazodone HCl 75 mg PO HS PRN 05/22/17 [History] Albuterol 8 gm Mdi Hfa [Ventolin Hfa MDI] 8 gm IH Q4HPRN PRN 04/25/18 [ History] Escitalopram Oxalate 10 mg [Lexapro 10 MG] 20 mg PO HS 04/25/18 [History] Amitriptyline HCl 25 mg [Elavil 25 mg] 75 mg PO HS PRN 11/18/18 [History] Metoclopramide HCl 10 mg PO TID PRN 11/18/18 [History] Tizanidine HCl 4 mg [Zanaflex 4 MG] 8 mg PO HS 11/18/18 [History] Hx Tetanus, Diphtheria Vaccination/Date Given: No Hx Influenza Vaccination/Date Given: No Hx Pneumococcal Vaccination/Date Given: No - Past Medical History Pertinent Past Medical History: Yes Neurological History: Peripheral Neuropathy ENT History: No Pertinent History Cardiac History: Hypertension Respiratory History: Asthma, Bronchitis, COPD Endocrine Medical History: No Pertinent History Musculoskeletal History: Arthritis, Fractures GI Medical History: Colitis, Hemorrhoids History: Other Psycho-Social History: Anxiety, Depression, Panic Disorder Female Reproductive Disorders: Abnormal Uterine Bleeding Other Medical History: wears O2 at night, DJD of the L-spine. - Past Surgical History Past Surgical History: Yes Neuro Surgical History: No Pertinent History Cardiac: No Pertinent History Respiratory: No Pertinent History Gastrointestinal: No Pertinent History Genitourinary: No Pertinent History Musculoskeletal: Orthopedic Surgery Female Surgical History: Section, Hysterectomy Other Surgical History: rt shoulder, AND CARPLETUNNEL BRITTANY - Social History Smoking Status: Current every day smoker How long have you smoked: 24 Exposure to second hand smoke: Yes Drug Use: none Patient Lives Alone: No Significant Family History: no pertinent family hx - Review of Systems Constitutional: No Symptoms Eyes: No Symptoms Ears, Nose, & Throat: No Symptoms Respiratory: No Symptoms Cardiac: No Symptoms Abdominal/Gastrointestinal: No Symptoms Genitourinary Symptoms: No Symptoms Musculoskeletal: No Symptoms Skin: No Symptoms Neurological: No Symptoms Psychological: Anxiety, Depression, Suicidal Ideations, No Homicidal Ideations Endocrine: No Symptoms Hematologic/Lymphatic: No Symptoms Immunological/Allergic: No Symptoms All Other Systems: Reviewed and Negative - Nursing Vital Signs Nursing Vital Signs: Initial Vital Signs Temperature 98.6 F 01/09/19 20:13 Respiratory Rate 18 01/09/19 20:13 Blood Pressure 144/116 01/09/19 20:13 O2 Sat by Pulse Oximetry 98 01/09/19 20:13 Pain Scale Pain Intensity 0 - Physical Exam General Appearance: mild distress, alert, anxiety Eyes, Ears, Nose, Throat Exam: normal ENT inspection, moist mucous membranes Neck Exam: normal inspection, non-tender, supple, full range of motion Respiratory Exam: normal breath sounds, lungs clear, airway intact, No chest tenderness, No respiratory distress Cardiovascular Exam: regular rate/rhythm, normal heart sounds, normal peripheral pulses Gastrointestinal/Abdominal Exam: soft, normal bowel sounds, No tenderness Extremities Exam: normal inspection, normal range of motion, No evidence of injury Current Suicidality: other (not sure of specific plan but has options) Neurological Exam: alert, normal mood/affect, roof bolter II-XII nml as tested, oriented x 3 Appearance: appropriate appearance, appropriate insight Behavior/Eye Contact/Speech: alert & cooperative, avoids eye contact Thoughts/Hallucinations: normal thought pattern, no apparent hallucination Skin Exam: normal color, warm, dry SpO2 Interpretation: normal O2 Delivery: Room Air Ordered Tests: Active Orders 24 hr Category Date Time Status EKG-ER Only STAT Care 01/09/19 20:47 Active Psychiatric Consult STAT Cons 01/09/19 20:47 Active ACETAMINOPHEN Stat Lab 01/09/19 21:23 Completed CBC W DIFF Stat Lab 01/09/19 21:23 Completed CMP Stat Lab 01/09/19 21:23 Completed CULTURE,URINE Stat Lab 01/09/19 21:31 Received ETHYL ALCOHOL Stat Lab 01/09/19 21:23 Completed HCG,QUALITATIVE URINE Stat Lab 01/09/19 20:48 Completed SALICYLATE Stat Lab 01/09/19 21:23 Completed UA W/RFX UR CULTURE Stat Lab 01/09/19 21:31 Completed Urine Triage Profile Stat Lab 01/09/19 21:31 Completed Lab/Rad Data: Laboratory Result Diagrams 01/09/19 21:23 01/09/19 21:23 Laboratory Results 01/09/19 01/09/19 01/09/19 Range/Units 21:31 21:31 21:23 WBC (4.0-10.5) K/mm3 RBC (4.1-5.4) M/mm3 Hgb (12.0-16.0) gm/dl Hct (35-47) % MCV (78-100) fl MCH (26-32) pg MCHC (32-36) g/dl RDW (11.5-14.0) % Plt Count (150-450) K/mm3 MPV (6-9.5) fl Gran % (36.0-66.0) % Eos # (Auto) (0-0.5) Absolute Lymphs (auto) (1.0-4.6) Absolute Monos (auto) (0.0-1.3) Lymphocytes % (24.0-44.0) % Monocytes % (0.0-12.0) % Eosinophils % (0.00-5.0) % Basophils % (0.0-0.4) % Absolute Granulocytes (1.4-6.9) Basophils # (0-0.4) Sodium 140 (137-145) mmol/L Potassium 4.3 (3.5-5.1) mmol/L Chloride 105 (98-107) mmol/L Carbon Dioxide 22 (22-30) mmol/L Anion Gap 17.5 H (5-15) MEQ/L BUN 36 H (7-17) mg/dL Creatinine 2.06 H (0.52-1.04) mg/dL Estimated GFR 27.9 ML/MIN Glucose 94 (74-106) mg/dL Calcium 10.5 H (8.4-10.2) mg/dL Total Bilirubin 0.90 (0.2-1.3) mg/dL AST 21 (14-36) U/L ALT 16 (0-35) U/L Alkaline Phosphatase 85 (38-126) U/L Serum Total Protein 8.1 (6.3-8.2) g/dL Albumin 4.7 (3.5-5.0) g/dL Urine Color YELLOW (YELLOW) Urine Appearance SLIGHTLY CLOUDY (CLEAR) Urine pH 5.0 (5-6) Ur Specific [place] 1.025 (1.005-1.025) Urine Protein NEGATIVE (Negative) Urine Ketones TRACE (NEGATIVE) Urine Blood NEGATIVE (0-5) Casey/ul Urine Nitrite NEGATIVE (NEGATIVE) Urine Bilirubin NEGATIVE (NEGATIVE) Urine Urobilinogen NEGATIVE (0-1) mg/dL Ur Leukocyte Esterase NEGATIVE (NEGATIVE) Urine WBC (Auto) NONE (0-5) /HPF Urine RBC (Auto) 0-2 (0-2) /HPF U Hyaline Cast (Auto) 0-2 (0-2) /LPF U Epithel Cells (Auto) FEW (FEW) /HPF Urine Bacteria (Auto) MODERATE (NEGATIVE) /HPF Urine Mucus (Auto) SLIGHT (NEGATIVE) /HPF Urine Culture Reflexed YES (NO) Urine Glucose NEGATIVE (NEGATIVE) mg/dL Urine HCG, Qual (Negative) Salicylates < 1.0 L (2-20) mg/dL Urine Opiates Level NEGATIVE (NEGATIVE) Ur Methadone NEGATIVE (NEGATIVE) Acetaminophen < 10 L (10-30) ug/ml Urine Barbiturates NEGATIVE (NEGATIVE) Ur Phencyclidine (PCP) NEGATIVE (NEGATIVE) Urine Amphetamine POSITIVE (NEGATIVE) U Benzodiazepine Level NEGATIVE (NEGATIVE) Urine Cocaine NEGATIVE (NEGATIVE) Urine Marijuana (THC) NEGATIVE (NEGATIVE) Ethyl Alcohol < 10 (0-10) mg/dL 01/09/19 01/09/19 Range/Units 21:23 20:48 WBC 11.1 H (4.0-10.5) K/mm3 RBC 4.57 (4.1-5.4) M/mm3 Hgb 12.3 (12.0-16.0) gm/dl Hct 36.7 (35-47) % MCV 80.3 (78-100) fl MCH 26.9 (26-32) pg MCHC 33.5 (32-36) g/dl RDW 14.9 H (11.5-14.0) % Plt Count 277 (150-450) K/mm3 MPV 8.9 (6-9.5) fl Gran % 55.4 (36.0-66.0) % Eos # (Auto) 0.12 (0-0.5) Absolute Lymphs (auto) 3.94 (1.0-4.6) Absolute Monos (auto) 0.87 (0.0-1.3) Lymphocytes % 35.4 (24.0-44.0) % Monocytes % 7.8 (0.0-12.0) % Eosinophils % 1.1 (0.00-5.0) % Basophils % 0.3 (0.0-0.4) % Absolute Granulocytes 6.18 (1.4-6.9) Basophils # 0.03 (0-0.4) Sodium (137-145) mmol/L Potassium (3.5-5.1) mmol/L Chloride (98-107) mmol/L Carbon Dioxide (22-30) mmol/L Anion Gap (5-15) MEQ/L BUN (7-17) mg/dL Creatinine (0.52-1.04) mg/dL Estimated GFR ML/MIN Glucose (74-106) mg/dL Calcium (8.4-10.2) mg/dL Total Bilirubin (0.2-1.3) mg/dL AST (14-36) U/L ALT (0-35) U/L Alkaline Phosphatase (38-126) U/L Serum Total Protein (6.3-8.2) g/dL Albumin (3.5-5.0) g/dL Urine Color (YELLOW) Urine Appearance (CLEAR) Urine pH (5-6) Ur Specific [place] (1.005-1.025) Urine Protein (Negative) Urine Ketones (NEGATIVE) Urine Blood (0-5) Casey/ul Urine Nitrite (NEGATIVE) Urine Bilirubin (NEGATIVE) Urine Urobilinogen (0-1) mg/dL Ur Leukocyte Esterase (NEGATIVE) Urine WBC (Auto) (0-5) /HPF Urine RBC (Auto) (0-2) /HPF U Hyaline Cast (Auto) (0-2) /LPF U Epithel Cells (Auto) (FEW) /HPF Urine Bacteria (Auto) (NEGATIVE) /HPF Urine Mucus (Auto) (NEGATIVE) /HPF Urine Culture Reflexed (NO) Urine Glucose (NEGATIVE) mg/dL Urine HCG, Qual NEGATIVE (Negative) Salicylates (2-20) mg/dL Urine Opiates Level (NEGATIVE) Ur Methadone (NEGATIVE) Acetaminophen (10-30) ug/ml Urine Barbiturates (NEGATIVE) Ur Phencyclidine (PCP) (NEGATIVE) Urine Amphetamine (NEGATIVE) U Benzodiazepine Level (NEGATIVE) Urine Cocaine (NEGATIVE) Urine Marijuana (THC) (NEGATIVE) Ethyl Alcohol (0-10) mg/dL - Progress Progress: unchanged Progress Note: 01/10/19 03:49 pt was accepted to inpt therapy at [facility] by Dr. Burgess. pt now states she refuses to sign any forms. i discussed the process at the outset with pt and told pt if she refuses to voluntarily go to in care, she would undergo an emergency fpc and have to be involuntarily placed for minimum 72 hours. pt became very upset, crying, cursing at me and outbursts in her room and called me a "fucking asshole". pt states she is the pt, a human being and i owe her as the doctor to come talk to her again. I did not go back into room to discuss again what i had already discussed with her and put myself into a position to be verbally abused and cursed at. Counseled pt/family regarding: lab results, diagnosis - Departure Departure Disposition: Transfer Clinical Impression: Suicidal ideation Condition: Stable Critical Care Time: No Referrals: TEREZA VILLATORO [Primary Care Provider] -
[2019-01-09 21:26] LABS: BASOPHIL % 0.3 % (0.0-0.4); Basophil (Absolute #) 0.03 (0-0.4); Eosinophil % 1.1 % (0.00-5.0); Eosinophil (Absolute #) 0.12 (0-0.5); Granulocyte Absolute (ANC) 6.18 (1.4-6.9); Granulocytes % 55.4 % (36.0-66.0); Hematocrit 36.7 % (35-47); Hemoglobin 12.3 gm/dl (12.0-16.0); Lymphocyte (Absolute #) 3.94 (1.0-4.6); Lymphocytes % 35.4 % (24.0-44.0); Mean Cell Volume 80.3 fl (78-100); Mean Corpuscular Hemoglobin 26.9 pg (26-32); Mean Corpuscular Hgb Concent. 33.5 g/dl (32-36); Mean Platelet Volume 8.9 fl (6-9.5); Monocyte (Absolute #) 0.87 (0.0-1.3); Monocytes % 7.8 % (0.0-12.0); Platelet Count 277 K/mm3 (150-450); Red Blood Count 4.57 M/mm3 (4.1-5.4); Red Cell Distribution Width 14.9 % (11.5-14.0); White Blood Count 11.1 K/mm3 (4.0-10.5)
[2019-01-09 21:33] LABS: Appearance SLIGHTLY CLOUDY (CLEAR); Bacteria MODERATE /HPF (NEGATIVE); Bilirubin NEGATIVE (NEGATIVE); Blood NEGATIVE Ery/ul (0-5); Epithelial Cells FEW /HPF (FEW); Glucose NEGATIVE (NEGATIVE); Hyaline Casts 0-2 /LPF (0-2); Ketones TRACE (NEGATIVE); Leukocyte Esterase NEGATIVE (NEGATIVE); Mucus SLIGHT /HPF (NEGATIVE); Nitrite NEGATIVE (NEGATIVE); Protein,Urine Dip NEGATIVE (Negative); RBC 0-2 /HPF (0-2); Specific Gravity 1.025 (1.005-1.025); Urobilinogen NEGATIVE mg/dL (0-1)
[2019-01-09 21:39] LABS: ALBUMIN 4.7 g/dL (3.5-5.0); ALKALINE PHOSPHATASE 85 U/L (38-126); ANION GAP 17.5 MEQ/L (5-15); BLOOD UREA NITROGEN 36 mg/dL (7-17); CHLORIDE 105 mmol/L (98-107); Calcium 10.5 mg/dL (8.4-10.2); Carbon Dioxide 22 mmol/L (22-30); Creatinine 1 2.06 mg/dL (0.52-1.04); Glucose 94 mg/dL (74-106); Potassium 4.3 mmol/L (3.5-5.1); SGOT/AST 21 U/L (14-36); SGPT/ALT 16 U/L (0-35); SODIUM 140 mmol/L (137-145); Total Protein 8.1 g/dL (6.3-8.2)
[2019-01-09 21:43] LABS: ACETAMINOPHEN < 10 ug/ml (10-30); ETHYL ALCOHOL < 10 mg/dL (0-10); SALICYLATE < 1.0 mg/dL (2-20)
[2019-01-09 21:47] LABS: Barbiturate,Urine NEGATIVE (NEGATIVE); Benzodiazepine,Urine NEGATIVE (NEGATIVE); Cocaine,Urine NEGATIVE (NEGATIVE); Methadone,Urine NEGATIVE (NEGATIVE); Opiate,Urine NEGATIVE (NEGATIVE); PCP,Urine NEGATIVE (NEGATIVE); THC,Urine NEGATIVE (NEGATIVE)
[2019-01-09 22:11] LABS: Amphetamine,Urine POSITIVE (NEGATIVE)
[2019-01-10 05:16] VITALS: BP 102/78; PULSE 80; O2SAT 96
== END 2019-01-10 06:15 | disposition short-term general hospital (02) ==
LOC: ED 20:11
DX: R45.851 Suicidal ideations (principal); Z79.899 Other long term (current) drug therapy
CPT/HCPCS: 36415; 80053; 80307; 81001; 84703; 85025; 87086; 90791; 93005; 99285; G0480; G0481; Q3014